=== PATIENT | male | born 1945 | race African-American/Black ===

== ENCOUNTER 2016-12-03 18:07 | Inpatient (IN) | payer MEDICAID, MEDICARE, OTHER ==
[~2016-12-03] VITALS: Ht 177.8 cm; Wt 95.3 kg
[~2016-12-03 18:07] MED LIST: AMBIEN10 M1 ORAL; CATAPRES0.1 MG PO; HYTRIN2 MG PO; KLONOPIN1 MG PO; METOPROLOL TART25 MG PO; MORPHINE SULFAT15 M1 PO; OXYCODONE-ACET1 EAC5 PO; QUETIAPINE FUMA25 MG PO
[2016-12-03 18:25] VITALS: BP 105/75
[2016-12-03 18:44] LABS: MEAN CORPUSCULAR HEMOGLOBIN 22.6 PG (27.0-31.0); MEAN CORPUSCULAR HGB CONC 31.1 G/DL (32.0-36.0); MEAN CORPUSCULAR VOLUME 72 FL (80-99); MEAN PLATELET VOLUME 11.8 FL (6.5-10.1); PLATELET COUNT 193 K/UL (150-450); RED BLOOD COUNT 6.06 M/UL (4.70-6.10); RED CELL DISTRIBUTION WIDTH 12.5 % (11.6-14.8); WHITE BLOOD COUNT 16.2 K/UL (4.8-10.8)
[2016-12-03 18:46] LABS: BASOPHILS % (AUTO) 0.8 % (0.0-2.0); EOSINOPHILS % (AUTO) 0.4 % (0.0-3.0); LYMPHOCYTES % (AUTO) 7.1 % (20.0-45.0); MONOCYTES % (AUTO) 4.5 % (1.0-10.0); NEUTROPHILS % (AUTO) 87.3 % (45.0-75.0)
[2016-12-03 18:54] LABS: REFLEX LACTIC ACID YES OR NO YES; TROPONIN I < 0.30 ng/mL (<=0.30)
[2016-12-03 19:52] LABS: ALANINE AMINOTRANSFERASE 44 U/L (3-41); ALBUMIN/GLOBULIN RATIO 0.8 (1.0-2.7); ANION GAP 16 (5-15); ASPARTATE AMINO TRANSFERASE 35 U/L (5-40); CALCIUM 8.6 mg/dL (8.6-10.2); CARBON DIOXIDE 25 mEQ/L (20-30); CHLORIDE 90 mEQ/L (98-107); CREATININE 0.9 mg/dL (0.7-1.2); HEMOLYSIS 74; POTASSIUM 5.5 mEQ/L (3.4-4.9); SODIUM 131 mEQ/L (135-145); TOTAL PROTEIN 7.7 g/dL (6.6-8.7)
[2016-12-03 20:00] VITALS: BP 127/64
[2016-12-03] MEDS: Heparin 5000 units/ml inj SUBQ SCH ×2 (20:00→21:00)
[2016-12-03 20:03] LABS: CKMB < 1.5 ng/mL (< 6.7)
[2016-12-03 20:10] LABS: APPEARANCE,URINE CLEAR; KETONES,URINE NEGATIVE (NEGATIVE); LEUKOCYTE ESTERASE ,URINE NEGATIVE (NEGATIVE); NITRITE,URINE NEGATIVE (NEGATIVE); PH,URINE 5 (4.5-8.0); PROTEIN,URINE 3+ (NEGATIVE); UROBILINOGEN,URINE NORMAL MG/DL (0.0-1.0)
[2016-12-03] MEDS ORDERED: Azithromycin Inj IV ONE (20:24)
[2016-12-03] MEDS ORDERED: Albuterol ud Inhalation HHN ONE (20:30)
[2016-12-03] MEDS ORDERED: Morphine Sulfate 4mg/ml Inj IVP ONE (20:30)
[2016-12-03] MEDS ORDERED: Ipratropium 0.02% Inh Soln 2.5ml UD HHN ONE (20:30)
[2016-12-03] MEDS ORDERED: Azithromycin 500 MG in NS 275 ML IV ONE (20:30)
[2016-12-03] MEDS ORDERED: cefTRIAXone 1 GM in NS 55 ML IV ONE (20:30)
[2016-12-03 20:43] LABS: RBC,URINE 0-2 /HPF (0 - 0); WBC,URINE 0-2 /HPF (0 - 0)
[2016-12-03] MEDS ORDERED: MS CONTIN30 MG ORAL (20:43)
[2016-12-03 20:44] LABS: BACTERIA,URINE OCCASIONAL /HPF
[2016-12-03] MEDS ORDERED: Metoprolol 25mg tab ORAL SCH (20:45)
[2016-12-03] MEDS ORDERED: HYDROmorphone 1mg/ml Carpuject IVP PRN (20:45)
[2016-12-03] MEDS ORDERED: INCRUSE ELLI62.5 MCG IH (20:47)
[2016-12-03] MEDS ORDERED: JANUVIA100 MG ORAL (20:47)
[2016-12-03] MEDS ORDERED: SPIRIVA18 MCG INH (20:47)
[2016-12-03] MEDS ORDERED: ADVAIR 250-501 EACH INH (20:47)
[2016-12-03] MEDS ORDERED: ASPERCREME177.4 ML TP (20:50)
[2016-12-03] MEDS ORDERED: BENADRYL25 MG ORAL (20:50)
[2016-12-03] MEDS ORDERED: QUETIAPINE FUMA50 MG ORAL (20:59)
[2016-12-03] MEDS ORDERED: Heparin 5000 units/ml inj SUBQ SCH (21:00)
--- NOTE | 2016-12-03 21:51 | Emergency Room Report ---
History of Present Illness General Chief Complaint: Dyspnea/Respdistress Source: Patient Present Illness HPI 71-year-old male presents to ED complaining of shortness of breath x1 day. States he smoked a cigarette earlier today. [place] very short of breath. Has history of COPD and is on home oxygen. 2 L normally. Per EMS patient was hypoxic and increased his oxygen to 4 L. Denies any chest pain. Febrile as per triage. Denies cough. No other aggravating relieving factors. Denies any other associated symptoms Allergies: Coded Allergies: VANCOMYCIN (Verified Adverse Reaction, Mild, RED MAN, 01/23/12) Patient History Past Medical History: DM, HTN, asthma, COPD Past Surgical History: none Pertinent Family History: none Social History: Reports: smoking, Denies: alcohol use, drug use Immunizations: UTD Reviewed Nursing Documentation: PMH: Agreed, PSxH: Agreed Nursing Documentation-PMH Past Medical History: No History, Except For Hx Cardiac Problems: Yes Hx Hypertension: Yes Hx Pacemaker: No Hx Asthma: Yes Hx COPD: Yes Hx Diabetes: Yes Hx Cancer: Yes Hx Gastrointestinal Problems: No Hx Neurological Problems: No Hx Cerebrovascular Accident: No Hx Transient Ischemic Attacks: No Hx Dementia: No Hx Alzheimer's Disease: No Hx Parkinson's Disease: No Hx Meningitis: No Hx Encephalitis: No Hx Seizures: No Hx Epilepsy: No Hx Multiple Sclerosis: No Hx Cerebral Palsy: No Hx Amyotrophic Lat Sclerosis: No Hx Guillian-Purvis Syndrome: No Hx Paralysis: No Hx Peripheral Neuropathy: No Hx Spinal Cord Injury: No Hx Head Trauma: No Hx Traumatic Brain Injury: No Hx Memory Loss: No Hx Concentration Difficulty: No Hx Speech Problem: Yes - trach Hx Tremors: No Hx Vertigo: No Hx Dizziness: No Hx Syncope: No Hx Headaches: No Hx Aphasia: No Hx Dysphasia: Yes Hx Numbness: No Hx Weakness: No Hx Fatigue: No Hx Neurologic Surgery: No Hx Brain Shunt: No Review of Systems All Other Systems: negative except mentioned in HPI Physical Exam Vital Signs Date Time Temp Pulse Resp B/P Pulse Ox O2 Delivery O2 Flow Rate FiO2 12/03/16 17:58 99.7 130 20 154/76 92 Nasal Cannula 4.0 Sp02 EP Interpretation: reviewed, abnormal General Appearance: mild distress, thin Head: normocephalic Eyes: bilateral eye PERRL, bilateral eye normal inspection ENT: hearing grossly normal, normal pharynx, no angioedema, normal voice Neck: full range of motion, supple/symm/no masses Respiratory: decreased breath sounds, crackles, wheezing Cardiovascular #1: tachycardia Gastrointestinal: normal bowel sounds, non tender, soft, non-distended, no guarding, no rebound Rectal: deferred Genitourinary: no CVA tenderness Musculoskeletal: back normal Neurologic: alert, oriented x3, responsive, motor strength/tone normal, sensory intact, speech normal Psychiatric: normal inspection Skin: normal inspection Lymphatic: normal inspection Medical Decision Making Diagnostic Impression: Primary Impression: COPD exacerbation Additional Impressions: Pneumonia Qualified Codes: J18.1 - Lobar pneumonia, unspecified organism Sepsis Qualified Codes: A41.9 - Sepsis, unspecified organism ER Course Hospital Course 71-year-old M presenting to ED with SOB after smoking cigarette. h/o COPD Differential diagnoses include: Pneumonia, CHF exacerbation, pneumothorax, fluid overload Clinical course Patient placed on stretcher. 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 After initial history and physical, I ordered nebulizer treatments. I ordered labs, IV fluids, EKG, chest x-ray, blood cultures, UA. patient febrile - given tylenol Labs - noted leukocytosis noted, hemoglobin/hematocrit stable, K 5.5, Cr ok, lactate 2.6, troponins negative CXR - bilateral congestion, ? infiltrates vs atelectasis EKG-sinus tachycardia Patient had difficult IV access. Placed an external jugular line. Given 30 mL per KG fluid bolus abx given Case discussed with Dr. Chen and he agreed to the patient to his service for further care and support I feel this is a highly complex case requiring extensive working including EKG/ Rhythm strip, Xray/CT/US, Blood/urine lab work, repeat exams while in ED, and administration of strong opiates/narcotics for pain control, admission to hospital or close patient follow up. Diagnosis - COPD exacerbation, pneumonia, sepsis Patient admitted to telemetry in serious condition Labs Test 12/03/16 18:22 12/03/16 19:10 12/03/16 19:55 White Blood Count 16.2 K/UL (4.8-10.8) Red Blood Count 6.06 M/UL (4.70-6.10) Hemoglobin 13.7 G/DL (14.2-18.0) Hematocrit 43.9 % (42.0-52.0) Mean Corpuscular Volume 72 FL (80-99) Mean Corpuscular Hemoglobin 22.6 PG (27.0-31.0) Mean Corpuscular Hemoglobin Concent 31.1 G/DL (32.0-36.0) Red Cell Distribution Width 12.5 % (11.6-14.8) Platelet Count 193 K/UL (150-450) Mean Platelet Volume 11.8 FL (6.5-10.1) Neutrophils (%) (Auto) 87.3 % (45.0-75.0) Lymphocytes (%) (Auto) 7.1 % (20.0-45.0) Monocytes (%) (Auto) 4.5 % (1.0-10.0) Eosinophils (%) (Auto) 0.4 % (0.0-3.0) Basophils (%) (Auto) 0.8 % (0.0-2.0) Lactic Acid Level 2.60 mmol/L (0.66-2.22) 2.60 mmol/L (0.66-2.22) Troponin I < 0.30 ng/mL (<=0.30) Sodium Level 131 mEQ/L (135-145) Potassium Level 5.5 mEQ/L (3.4-4.9) Chloride Level 90 mEQ/L (98-107) Carbon Dioxide Level 25 mEQ/L (20-30) Anion Gap 16 (5-15) Blood Urea Nitrogen 16 mg/dL (7-23) Creatinine 0.9 mg/dL (0.7-1.2) Estimat Glomerular Filtration Rate mL/min (>60) Glucose Level 261 mg/dL (74-106) Calcium Level 8.6 mg/dL (8.6-10.2) Total Bilirubin 0.4 mg/dL (0.0-1.2) Aspartate Amino Transf (AST/SGOT) 35 U/L (5-40) Alanine Aminotransferase (ALT/SGPT) 44 U/L (3-41) Alkaline Phosphatase 81 U/L (40-129) Total Creatine Kinase 41 U/L (38-174) Creatine Kinase MB < 1.5 ng/mL (< 6.7) Creatine Kinase MB Relative Index 3.6 Pro-B-Type Natriuretic Peptide 63 pg/mL (0-125) Total Protein 7.7 g/dL (6.6-8.7) Albumin 3.6 g/dL (3.5-5.2) Globulin 4.1 g/dL Albumin/Globulin Ratio 0.8 (1.0-2.7) Urine Color Pale yellow Urine Appearance Clear Urine pH 5 (4.5-8.0) Urine Specific [place] 1.015 (1.005-1.035) Urine Protein 3+ (NEGATIVE) Urine Glucose (UA) 1+ (NEGATIVE) Urine Ketones Negative (NEGATIVE) Urine Occult Blood 1+ (NEGATIVE) Urine Nitrite Negative (NEGATIVE) Urine Bilirubin Negative (NEGATIVE) Urine Urobilinogen Normal MG/DL (0.0-1.0) Urine Leukocyte Esterase Negative (NEGATIVE) Urine RBC 0-2 /HPF (0 - 0) Urine WBC 0-2 /HPF (0 - 0) Urine Squamous Epithelial Cells None /LPF (NONE/OCC) Urine Bacteria Occasional /HPF (NONE) EKG Diagnostic Results Rate: tachycardiac Rhythm: NSR ST Segments: no acute changes ASA given to the pt in ED: No Rhythm Strip Diag. Results EP Interpretation: yes Rhythm: NSR, no PVC's, no ectopy Chest X-Ray Diagnostic Results EP Interpretation: Yes Findings: no pneumothorax, no acute cardiopulmonary disease, other - bilateral atelectasis. effusion noted. ? infiltrate Number of Views: 1 Last Vital Signs Date Time Temp Pulse Resp B/P Pulse Ox O2 Delivery O2 Flow Rate FiO2 12/03/16 20:36 116 18 92 Nasal Cannula 4.0 12/03/16 20:00 102.3 127/64 Status: improved Disposition: ADMITTED INPATIENT Condition: Serious Referrals: BRYON CHEN (PCP) THOMAS BRADY M.D. December 03, 2016 21:51
[2016-12-03] MEDS ORDERED: Solu-MEDROL 125mg Inj IVP SCH (22:00)
[2016-12-03] MEDS ORDERED: Piperacillin/Tazobactam 3.375 GM in D5W 110 ML IVPB SCH (22:00)
[2016-12-03 22:02] VITALS: BP 127/67
[2016-12-03] MEDS ORDERED: Sodium Polystyrene Sulfonate 15gm Powder ORAL ONE (22:30)
[2016-12-03 23:00] VITALS: BP 123/68
[2016-12-03 23:20] VITALS: BP 150/75
[2016-12-03] MEDS: DuoNeb 0.5-3(2.5)mg/3ml neb HHN SCH (23:40)
[2016-12-04] MEDS: Heparin 5000 units/ml inj SUBQ SCH ×3 (00:10→20:21)
[2016-12-04] MEDS: Solu-MEDROL 125mg Inj IVP SCH ×4 (00:13→22:09)
[2016-12-04] MEDS: Metoprolol 25mg tab ORAL SCH ×3 (00:15→17:43)
[2016-12-04] MEDS: Pantoprazole Inj IVP SCH ×4 (00:16→22:09)
[2016-12-04] MEDS: Terazosin 2mg cap ORAL SCH ×2 (00:36→20:13)
[2016-12-04] MEDS: DuoNeb 0.5-3(2.5)mg/3ml neb HHN SCH ×6 (03:47→22:32)
[2016-12-04 04:00] VITALS: BP 126/75
[2016-12-04] MEDS ORDERED: HYDROmorphone 1mg/ml Carpuject SUBQ PRN (04:30)
[2016-12-04] MEDS: Piperacillin/Tazobactam 3.375 GM in D5W 110 ML IVPB SCH ×3 (05:16→22:09)
[2016-12-04 07:37] VITALS: BP 126/77
[2016-12-04] MEDS ORDERED: Heparin 2000 units/Ns 1000ml INJ ONE (08:00)
[2016-12-04] MEDS ORDERED: Sodium Bicarbonate 4% 2.4meq/5ml vial INJ ONE (08:00)
[2016-12-04] MEDS ORDERED: Lidocaine 1% Plain 30 ml INJ ONE (08:00)
[2016-12-04] MEDS: Morphine IR 15mg tab ORAL SCH ×2 (08:25→17:43)
[2016-12-04] MEDS: Levofloxacin 500mg tab ORAL SCH (08:25)
[2016-12-04] MEDS ORDERED: Dyna-Hex 2% Top Sol 8oz TOPIC ONE (09:00)
[2016-12-04] MEDS ORDERED: 1/2 NS 1000ml IV ONE (09:29)
[2016-12-04 10:45] LABS: MEAN CORPUSCULAR HEMOGLOBIN 22.6 PG (27.0-31.0); MEAN CORPUSCULAR HGB CONC 31.3 G/DL (32.0-36.0); MEAN CORPUSCULAR VOLUME 72 FL (80-99); MEAN PLATELET VOLUME 10.4 FL (6.5-10.1); PLATELET COUNT 170 K/UL (150-450); RED BLOOD COUNT 5.97 M/UL (4.70-6.10); RED CELL DISTRIBUTION WIDTH 12.1 % (11.6-14.8); WHITE BLOOD COUNT 12.7 K/UL (4.8-10.8)
[2016-12-04] MEDS: HYDROmorphone 1mg/ml Carpuject SUBQ PRN ×2 (10:54→16:03)
--- NOTE | 2016-12-04 11:01 | History and Physical Report ---
DATE OF ADMISSION: 12/03/2016 CHIEF COMPLAINT: Shortness of breath, COPD exacerbation, possible sepsis. HISTORY OF PRESENT ILLNESS: The patient is a 71-year-old male, well known to me. He has a history of COPD, hypertension and nicotine dependence. He has a prior history of gangrene of the fingers, status post amputation. He has a prior history of narcotics dependence, but is with a history of skin abscesses. The patient presented from home with complaints of one week of progressive shortness of breath. The patient has been using his nebulizers as well as supplemental oxygen, but on the day of admission his symptoms worsened and he eventually called 911. He was brought to the emergency room. There is noted to be short of breath and hypoxic. [place] [address]. He had an elevated lactic acid level. The patient has been started on broad-spectrum IV antibiotics. He is now admitted for further evaluation for possible sepsis, lactic acidosis, and COPD exacerbation. PAST MEDICAL HISTORY: As above. PAST SURGICAL HISTORY: As above. MEDICATIONS: Current medications reconciled and reviewed. ALLERGIES: Include vancomycin. SOCIAL HISTORY: There is no history of alcohol. The patient is a heavy smoker. Continues to smoke. There is a history of narcotic dependence, but the patient has been clean and sober for several years now. FAMILY HISTORY: Noncontributory. REVIEW OF SYSTEMS: General: No fever or chills. HEENT: No headaches or visual changes. Cardiopulmonary: Positive shortness of breath. No chest pain. Mild cough. Gastrointestinal: No nausea or vomiting. No diarrhea. Genitourinary: No urgency or frequency. Musculoskeletal: No joint pain or swelling. No evidence of seizures. PHYSICAL EXAMINATION: VITAL SIGNS: Temperature is 98.0 degrees, pulse 107, respirations 21, and blood pressure 126/77. GENERAL: The patient is a well-developed male, in apparent distress. He is dyspneic, but is able to speak mostly in full sentences. NECK: Supple. No jugular venous distention. HEART: Regular rate and rhythm. LUNGS: Diminished breath sounds with wheezes. ABDOMEN: Soft, nontender and nondistended. EXTREMITIES: Without clubbing or cyanosis. There is trace pitting edema. LABORATORY DATA: Sodium 131, potassium 5.5, chloride 90, bicarbonate 25, BUN of 16, creatinine 0.9, and glucose is 261. Lactic acid was 2.6. White count was 16,000, hemoglobin 13, and platelet count 193,000. UA was clear. Chest x-ray results are pending. ASSESSMENT: This is a pleasant male, who complaints of shortness of breath secondary to chronic obstructive pulmonary disease exacerbation. Pneumonia and sepsis. PROBLEM LIST: 1. Pneumonia and sepsis. 2. Chronic obstructive pulmonary disease exacerbation. 3. Respiratory insufficiency. 4. Tachycardia. 5. Hyponatremia. 6. Hyperkalemia. 7. Lactic acidosis. PLAN: Broad-spectrum IV antibiotic therapy. Intravenous steroids. Respiratory treatments [id number]. Pulmonary, ID, and Cardiology consultations were obtained. We will hydrate gently and follow up lactic acid level. Check a venous duplex of the lower extremities. Pain management. Patrick Mancilla M.D. DR: Opal JOB#: [id number] CC:
[2016-12-04 11:05] LABS: ALANINE AMINOTRANSFERASE 44 U/L (3-41); ALBUMIN/GLOBULIN RATIO 0.8 (1.0-2.7); ANION GAP 16 (5-15); ASPARTATE AMINO TRANSFERASE 32 U/L (5-40); CALCIUM 9.1 mg/dL (8.6-10.2); CARBON DIOXIDE 26 mEQ/L (20-30); CHLORIDE 92 mEQ/L (98-107); CREATININE 0.8 mg/dL (0.7-1.2); HEMOLYSIS 3; POTASSIUM 4.3 mEQ/L (3.4-4.9); SODIUM 134 mEQ/L (135-145)
--- NOTE | 2016-12-04 11:17 | Diagnostic Imaging Report ---
Indication: SOB Technique: One view of the chest Comparison: 08/27/2013 Findings: There is some atelectasis and possibly some consolidation at the left lateral lung base. There is minimal atelectasis at the right lung base. The heart size is normal. Pleural spaces are clear Impression: Left basilar atelectasis and possible consolidation. Correlate with clinical findings
[2016-12-04 11:55] LABS: BAND NEUTROPHILS % (MANUAL) 0 % (0-8); BASOPHILS % (MANUAL) 0 % (0-2); EOSINOPHILS % (MANUAL) 0 % (0-3); LYMPHOCYTES % (MANUAL) 9 % (20-45); MICROCYTES 1+; NEUTROPHILS % (MANUAL) 84 % (45-75); PLATELET ESTIMATE ADEQUATE; PLATELET MORPHOLOGY NORMAL; TOTAL CELLS COUNTED 100
[2016-12-04 12:03] VITALS: BP 131/79
--- NOTE | 2016-12-04 13:02 | Consultation ---
DATE OF CONSULTATION: 12/04/2016 PULMONARY CONSULTATION CONSULTING PHYSICIAN: Cristopher Gaines M.D. REASON FOR CONSULTATION: Respiratory insufficiency and congestion. HISTORY OF PRESENT ILLNESS: This is a 71-year-old male, admitted through the emergency room with increasing shortness of breath over the past full day. The patient does have a longstanding history of COPD, he is on oxygen at home. The patient does smoke and has been continuing to smoke. The patient noted to be febrile in the emergency room with cough and congestion. The patient is admitted after being evaluated in the emergency room and been treated. The patient's x-ray is notable for labile pneumonia. The patient's care discussed and reviewed with Dr. Mancilla and he had asked me kindly to evaluate and recommend further. PAST MEDICAL HISTORY: Diabetes, hypertension, asthma, COPD, and chronic hypoxemia. MEDICATIONS: Reviewed. ALLERGIES: Reviewed. SOCIAL HISTORY: The patient continues to smoke. He is retired at present. No IV drug use. The patient is otherwise independent. REVIEW OF SYSTEMS: Otherwise negative with the exception of the above. No other significant medical problems noted or reported. PhysicalExamination: General: A well-developed male with some congestion, but in no significant distress. Vital Signs: Heart rate 92, respiratory rate 18, saturations are 98% on three liters, and blood pressure is 126/77. HEENT: Overall negative. Extraocular movements are grossly intact. Pupils are equal and reactive. Oropharynx is moist without thrush. Neck: Otherwise supple. Lungs: With scattered rhonchi. Some reduced breath sounds in both base. Cardiovascular: Normal S1 and S2. Regular rate and rhythm without murmurs, rubs, or gallops. Abdomen: Soft, nontender, and nondistended. Extremities: No cyanosis or clubbing. No edema. Neurological: Grossly nonfocal. Alert and oriented x3. Cranial nerves otherwise are intact. Motor examination is otherwise negative. LABORATORY AND DIAGNOSTIC DATA: White cell count 16.2, hematocrit 43, and platelets are 193,000. Chemistry, sodium 131, potassium 5.5, BUN 16, and creatinine 0.9. Liver enzymes are normal. Lactic acid 2.6. IMPRESSION: 1. Labile pneumonia. 2. Shortness of breath. 3. Respiratory insufficiency. 4. Chronic hypoxemia. 5. Chronic nicotine dependence. 6. Hyperkalemia. 7. Sinus tachycardia, now improved. 8. Leukocytosis concern for sepsis with elevated lactic acid. 9. Vancomycin allergy. RECOMMENDATIONS: 1. Resume home medications. 2. Antibiotic coverage as outlined. 3. Agree with management as outlined. 4. IV antibiotics as outlined. 5. Necessary care as outlined. 6. DVT prophylaxis. 7. We will follow up clinically for chronic changes. 8. Follow up x-ray and consider IV steroids if the patient did not improve Cristopher Gaines M.D. DR: Talita JOB#: [id number] CC: MILLI
[2016-12-04 16:00] VITALS: BP 130/72
--- NOTE | 2016-12-04 16:36 | Diagnostic Imaging Report ---
Indications: Needs long-term IV access Technique: Ultrasound confirms patent compressible right basilic vein. Total sterile technique, including sterile probe cover and sterile gel, hat, mask,, sterile gown, large sterile drape, and preparation with 2% chlorhexidine utilized. Local anesthesia with 1% lidocaine. Under real-time ultrasound guidance, puncture basilic vein using 21-gauge needle, documented and archived, passage 0.018 guidewire under direct fluoroscopy, which was used to determine appropriate catheter length, exchange for 5 Salvadorean peel-away sheath. 5 [place] Bard dual-lumen power PICC cut to 41 cm. It was inserted through the peel-away sheath. Peel-away sheath and guidewire removed. Catheter fixed to the skin. Both catheter ports aspirated and flushed. Patient tolerated procedure well, without immediate complication. Digital radiograph documents satisfactory catheter tip position, at the cavoatrial junction. Total fluoroscopy time 0.2 minutes. Total dose area product 15 dGycm2 Impression: Successful placement of right arm PICC under sonographic and fluoroscopic guidance, as described above.
--- NOTE | 2016-12-04 18:16 | Consultation ---
DATE OF CONSULTATION: 12/04/2016 INFECTIOUS DISEASE CONSULTATION This consultation is for coverage of Dr. Webb. CONSULTING PHYSICIAN: Alonzo Duran M.D. PRIMARY ATTENDING: Patrick Mancilla M.D. REASON FOR CONSULTATION: Pneumonia and COPD exacerbation. HISTORY OF PRESENT ILLNESS: This 71-year-old man admitted yesterday from home because of shortness of breath. Shortness of breath is progressive for one week. The patient had subjective fever and cough at home. Temperature at hospital was 102.3. The patient had leukocytosis. PAST MEDICAL HISTORY: Significant for COPD. The patient is on oxygen at home. He has diabetes mellitus and hypertension. ALLERGIES: Allergic to vancomycin. MEDICATIONS: Clonazepam, clonidine, morphine, Levaquin, hydromorphone, Percocet, Zosyn, linezolid, heparin, methylprednisone, metoprolol, DuoNeb inhaler, Protonix, terazosin, and sodium chloride. SOCIAL HISTORY: He smokes one pack of cigarettes a day. . Denies alcohol or drug abuse. REVIEW OF SYSTEMS: As in history of present illness. PHYSICAL EXAMINATION: VITAL SIGNS: Temperature current is 97, pulse 107, and blood pressure 126/77. HEAD AND NECK: No oral lesion. Getting oxygen by nasal cannula. HEART: S1 and S2. Tachycardic. LUNGS: Decreased expansion and sounds. ABDOMEN: Obese and soft. EXTREMITIES: No edema. LABORATORY DATA: WBC 12.7, hemoglobin 13.5, hematocrit 43.1, and platelets 170,000. Sodium 134, potassium 4.3, chloride 92, bicarbonate 26, BUN 13, creatinine 0.8, and glucose 338. Cultures are pending. Chest x-ray showed consolidation or atelectasis in the left base. UA was negative for nitrite and leukocyte esterase and WBC was 0 to 2. IMPRESSION: 1. Sepsis with fever and tachycardia. Likely, the patient has pneumonia in the left lower lobe. 2. He has chronic obstructive pulmonary disease exacerbation. 3. Nicotine dependence. 4. Diabetes mellitus. 5. Lactic acidosis. 6. Tachycardia. RECOMMENDATION: We will obtain sputum culture. We will continue with current antibiotics Zosyn, Levaquin, and Linezolid. We will follow up the cultures and narrow antibiotics. At the end of my exam, I thank Dr. Mancilla for involving me in the care of this patient. Alonzo Duran M.D. DR: LUI JOB#: [id number] CC:
[2016-12-04 20:00] VITALS: BP 136/78
[2016-12-04] MEDS: HYDROmorphone 1mg/ml Carpuject IVP PRN (20:12)
[2016-12-05] VITALS: BP 138/80
[2016-12-05] MEDS: HYDROmorphone 1mg/ml Carpuject IVP PRN ×2 (00:18→04:19)
[2016-12-05] MEDS: DuoNeb 0.5-3(2.5)mg/3ml neb HHN SCH ×6 (03:02→23:30)
[2016-12-05 04:00] VITALS: BP 106/55
[2016-12-05] MEDS: Piperacillin/Tazobactam 3.375 GM in D5W 110 ML IVPB SCH ×3 (05:53→21:14)
[2016-12-05] MEDS: Pantoprazole Inj IVP SCH ×3 (05:53→21:12)
[2016-12-05] MEDS: Solu-MEDROL 125mg Inj IVP SCH (05:53)
[2016-12-05 07:11] LABS: ALANINE AMINOTRANSFERASE 45 U/L (3-41); ALBUMIN/GLOBULIN RATIO 0.8 (1.0-2.7); ANION GAP 13 (5-15); ASPARTATE AMINO TRANSFERASE 34 U/L (5-40); CALCIUM 8.8 mg/dL (8.6-10.2); CARBON DIOXIDE 27 mEQ/L (20-30); CHLORIDE 94 mEQ/L (98-107); CREATININE 0.8 mg/dL (0.7-1.2); HEMOLYSIS 0; POTASSIUM 3.6 mEQ/L (3.4-4.9); SODIUM 134 mEQ/L (135-145); TOTAL PROTEIN 7.5 g/dL (6.6-8.7)
--- NOTE | 2016-12-05 07:46 | General Progress Note ---
Assessment/Plan Problem List: (1) Insomnia (2) CHF (congestive heart failure) (3) Pneumonia ICD Codes: J18.9 - Pneumonia, unspecified organism SNOMED: 631115364, [id number] Qualifiers: Qualified Codes: J18.1 - Lobar pneumonia, unspecified organism (4) COPD exacerbation ICD Codes: J44.1 - Chronic obstructive pulmonary disease with (acute) exacerbation SNOMED: 976461552, [id number] (5) Sepsis ICD Codes: A41.9 - Sepsis, unspecified organism SNOMED: 13197790 Qualifiers: Qualified Codes: A41.9 - Sepsis, unspecified organism Status: stable Assessment/Plan iv abx follow up cultures resp rx decrease steroids monitor cxr pain rx Subjective ROS Limited/Unobtainable: No Constitutional: Reports: malaise, weakness HEENT: Reports: no symptoms Cardiovascular: Reports: chest pain Respiratory: Reports: cough, shortness of breath, sputum Gastrointestinal/Abdominal: Reports: no symptoms Genitourinary: Reports: no symptoms Neurologic/Psychiatric: Reports: no symptoms Endocrine: Reports: no symptoms Hematologic/Lymphatic: Reports: anemia Allergies: Coded Allergies: VANCOMYCIN (Verified Adverse Reaction, Mild, RED MAN, 01/23/12) All Systems: reviewed and negative except above Subjective still sob. c/o generalized pain- uncontrolled. no fever or chills. ID, pulm , cards appreciated. Objective Last 24 Hour Vital Signs Date Time Temp Pulse Resp B/P Pulse Ox O2 Delivery O2 Flow Rate FiO2 12/05/16 04:00 106 12/05/16 04:00 98.0 104 22 106/55 99 Nasal Cannula 3.0 12/05/16 03:04 96 18 95 Nasal Cannula 3.0 32 12/05/16 03:04 95 18 99 Nasal Cannula 3.0 32 12/05/16 00:00 98.1 101 20 138/80 96 Room Air 12/05/16 00:00 97 12/04/16 22:34 94 18 99 Nasal Cannula 3.0 32 12/04/16 22:34 96 18 98 Nasal Cannula 3.0 32 12/04/16 20:00 95 12/04/16 20:00 97.8 101 20 136/78 96 Nasal Cannula 3.0 12/04/16 18:42 94 18 98 Nasal Cannula 3.0 32 12/04/16 18:42 95 18 97 Nasal Cannula 3.0 32 12/04/16 18:42 96.9 12/04/16 18:41 Nasal Cannula 3.0 32 12/04/16 18:41 97 Nasal Cannula 3.0 32 12/04/16 17:43 98 130/72 12/04/16 16:33 96.9 12/04/16 16:00 77 12/04/16 16:00 96.6 98 18 130/72 98 Room Air 12/04/16 12:03 96.9 102 17 131/79 98 Room Air 12/04/16 12:00 75 12/04/16 11:53 84 14 98 Nasal Cannula 3.0 32 12/04/16 11:45 86 16 97 Nasal Cannula 3.0 32 12/04/16 08:25 107 126/77 12/04/16 08:25 126/77 12/04/16 08:21 126/77 12/04/16 08:00 104 12/04/16 07:45 92 18 98 Nasal Cannula 3.0 32 Intake and Output 12/04/16 12/05/16 19:00 07:00 Intake Total 1375 ml 548.75 ml Output Total 1140 ml 1400 ml Balance 235 ml -851.25 ml Intake Oral 1300 ml IV Total 75 ml 548.75 ml Output Urine Total 1140 ml 1400 ml # Voids 4 # Bowel Movements 1 Laboratory Tests 12/04/16 09:50: White Blood Count 12.7H, Red Blood Count 5.97, Hemoglobin 13.5L, Hematocrit 43.1 , Mean Corpuscular Volume 72L, Mean Corpuscular Hemoglobin 22.6L, Mean Corpuscular Hemoglobin Concent 31.3L, Red Cell Distribution Width 12.1, Platelet Count 170, Mean Platelet Volume 10.4H, Neutrophils (%) (Auto) , Lymphocytes (%) (Auto) , Monocytes (%) (Auto) , Eosinophils (%) (Auto) , Basophils (%) (Auto) , Differential Total Cells Counted 100, Neutrophils % ( Manual) 84H, Lymphocytes % (Manual) 9L, Monocytes % (Manual) 7, Eosinophils % ( Manual) 0, Basophils % (Manual) 0, Band Neutrophils 0, Platelet Estimate Adequate, Platelet Morphology Normal, Microcytosis 1+, Sodium Level 134L, Potassium Level 4.3, Chloride Level 92L, Carbon Dioxide Level 26, Anion Gap 16H , Blood Urea Nitrogen 13, Creatinine 0.8, Estimat Glomerular Filtration Rate , Glucose Level 336H, Calcium Level 9.1, Total Bilirubin 0.5, Aspartate Amino Transf (AST/SGOT) 32, Alanine Aminotransferase (ALT/SGPT) 44H, Alkaline Phosphatase 82, Total Protein 8.0, Albumin 3.6, Globulin 4.4, Albumin/Globulin Ratio 0.8L 12/05/16 05:42: Sodium Level 134L, Potassium Level 3.6, Chloride Level 94L, Carbon Dioxide Level 27, Anion Gap 13, Blood Urea Nitrogen 16, Creatinine 0.8, Estimat Glomerular Filtration Rate , Glucose Level 372H, Calcium Level 8.8, Total Bilirubin 0.4, Aspartate Amino Transf (AST/SGOT) 34, Alanine Aminotransferase ( ALT/SGPT) 45H, Alkaline Phosphatase 72, Total Protein 7.5, Albumin 3.4L, Globulin 4.1, Albumin/Globulin Ratio 0.8L 12/05/16 06:39: Lactic Acid Level [Pending] Height (Feet): 5 Height (Inches): 10.00 Weight (Pounds): 210 General Appearance: WD/WN, alert Neck: supple Cardiovascular: normal peripheral pulses, normal rate, regular rhythm Respiratory/Chest: rhonchi - bilaterally, expiratory wheezing Abdomen: normal bowel sounds, non tender, soft, no organomegaly, no mass Extremities: normal range of motion, non-tender Edema: mild edema 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
[2016-12-05 08:00] VITALS: BP 141/78
--- NOTE | 2016-12-05 08:14 | Pulmonology Progress Note ---
Assessment/Plan Assessment/Plan IMPRESSION: 1. Basilar pneumonia. 2. Shortness of breath. 3. Respiratory insufficiency. 4. Chronic hypoxemia. 5. Chronic nicotine dependence. 6. Hyperkalemia. 7. Sinus tachycardia, now improved. 8. Leukocytosis concern for sepsis with elevated lactic acid. 9. Vancomycin allergy. PLAN care noted IV antibiotics WBC responding follow up chest XR encourage cough and clearance of secretions follow up and manage impression, plan, and exam edited and reviewed in detail care discussed with RN Subjective Allergies: Coded Allergies: VANCOMYCIN (Verified Adverse Reaction, Mild, RED MAN, 01/23/12) Subjective somewhat confused Objective Last 24 Hour Vital Signs Date Time Temp Pulse Resp B/P Pulse Ox O2 Delivery O2 Flow Rate FiO2 12/05/16 08:00 98.2 101 20 141/78 96 Nasal Cannula 2.0 12/05/16 04:00 106 12/05/16 04:00 98.0 104 22 106/55 99 Nasal Cannula 3.0 12/05/16 03:04 96 18 95 Nasal Cannula 3.0 32 12/05/16 03:04 95 18 99 Nasal Cannula 3.0 32 12/05/16 00:00 98.1 101 20 138/80 96 Room Air 12/05/16 00:00 97 12/04/16 22:34 94 18 99 Nasal Cannula 3.0 32 12/04/16 22:34 96 18 98 Nasal Cannula 3.0 32 12/04/16 20:00 95 12/04/16 20:00 97.8 101 20 136/78 96 Nasal Cannula 3.0 12/04/16 18:42 94 18 98 Nasal Cannula 3.0 32 12/04/16 18:42 95 18 97 Nasal Cannula 3.0 32 12/04/16 18:42 96.9 12/04/16 18:41 Nasal Cannula 3.0 32 12/04/16 18:41 97 Nasal Cannula 3.0 32 12/04/16 17:43 98 130/72 12/04/16 16:33 96.9 12/04/16 16:00 77 12/04/16 16:00 96.6 98 18 130/72 98 Room Air 12/04/16 12:03 96.9 102 17 131/79 98 Room Air 12/04/16 12:00 75 12/04/16 11:53 84 14 98 Nasal Cannula 3.0 32 12/04/16 11:45 86 16 97 Nasal Cannula 3.0 32 12/04/16 08:25 107 126/77 12/04/16 08:25 126/77 12/04/16 08:21 126/77 Intake and Output 12/04/16 12/05/16 19:00 07:00 Intake Total 1375 ml 548.75 ml Output Total 1140 ml 1400 ml Balance 235 ml -851.25 ml Intake Oral 1300 ml IV Total 75 ml 548.75 ml Output Urine Total 1140 ml 1400 ml # Voids 4 # Bowel Movements 1 Objective A well-developed male with some congestion, but in no significant distress. HEENT: Overall negative. Extraocular movements are grossly intact. Pupils are equal and reactive. Oropharynx is moist. Neck: supple. Lungs: With some rhonchi. Some reduced breath sounds in both base. Cardiovascular: Normal S1 and S2. Regular rate and rhythm without murmurs, rubs, or gallops. Abdomen: Soft, nontender, and nondistended. Extremities: No cyanosis or clubbing. No edema. Neurological: Grossly nonfocal. Alert and oriented x3. Cranial nerves otherwise are intact. Motor examination is otherwise negative. Microbiology Date/Time Source Procedure Growth Status 12/03/16 19:10 Blood Blood Culture - Preliminary NO GROWTH AFTER 24 HOURS Resulted 12/03/16 18:22 Blood Blood Culture - Preliminary NO GROWTH AFTER 24 HOURS Resulted Laboratory Tests 12/04/16 09:50: White Blood Count 12.7H, Red Blood Count 5.97, Hemoglobin 13.5L, Hematocrit 43.1 , Mean Corpuscular Volume 72L, Mean Corpuscular Hemoglobin 22.6L, Mean Corpuscular Hemoglobin Concent 31.3L, Red Cell Distribution Width 12.1, Platelet Count 170, Mean Platelet Volume 10.4H, Neutrophils (%) (Auto) , Lymphocytes (%) (Auto) , Monocytes (%) (Auto) , Eosinophils (%) (Auto) , Basophils (%) (Auto) , Differential Total Cells Counted 100, Neutrophils % ( Manual) 84H, Lymphocytes % (Manual) 9L, Monocytes % (Manual) 7, Eosinophils % ( Manual) 0, Basophils % (Manual) 0, Band Neutrophils 0, Platelet Estimate Adequate, Platelet Morphology Normal, Microcytosis 1+, Sodium Level 134L, Potassium Level 4.3, Chloride Level 92L, Carbon Dioxide Level 26, Anion Gap 16H , Blood Urea Nitrogen 13, Creatinine 0.8, Estimat Glomerular Filtration Rate , Glucose Level 336H, Calcium Level 9.1, Total Bilirubin 0.5, Aspartate Amino Transf (AST/SGOT) 32, Alanine Aminotransferase (ALT/SGPT) 44H, Alkaline Phosphatase 82, Total Protein 8.0, Albumin 3.6, Globulin 4.4, Albumin/Globulin Ratio 0.8L 12/05/16 05:42: Sodium Level 134L, Potassium Level 3.6, Chloride Level 94L, Carbon Dioxide Level 27, Anion Gap 13, Blood Urea Nitrogen 16, Creatinine 0.8, Estimat Glomerular Filtration Rate , Glucose Level 372H, Calcium Level 8.8, Total Bilirubin 0.4, Aspartate Amino Transf (AST/SGOT) 34, Alanine Aminotransferase ( ALT/SGPT) 45H, Alkaline Phosphatase 72, Total Protein 7.5, Albumin 3.4L, Globulin 4.1, Albumin/Globulin Ratio 0.8L 12/05/16 06:39: Lactic Acid Level 1.20 Current Medications Medications (Trade) Dose Ordered Sig/Quita Route PRN Reason Start Time Stop Time Status Last Admin Dose Admin Albuterol/ Ipratropium 3 ml 3 ml Q4HRT HHN 12/03/16 23:00 12/08/16 22:59 12/05/16 03:02 Chlorhexidine Gluconate (Rose Mary-Hex 2%) 1 applic DAILY TOPIC 12/05/16 09:00 01/04/17 08:59 Clonazepam (KlonoPIN) 1 mg BID ORAL 12/04/16 09:00 12/11/16 08:59 12/04/16 17:42 Clonidine HCl (Catapres) 0.1 mg BID ORAL 12/04/16 09:00 01/03/17 08:59 12/04/16 08:25 Dextrose (Dextrose 50%) STAT PRN IV Hypoglycemia 12/05/16 07:45 01/04/17 07:44 UNV Heparin Sodium (Porcine) (Heparin 5000 units/ml) 5,000 units EVERY 12 HOURS SUBQ 12/04/16 00:00 01/03/17 00:00 12/04/16 20:21 Hydromorphone HCl (Dilaudid) 2 mg Q4H PRN IVP Severe Pain (Pain Scale 7-10) 12/05/16 08:00 12/12/16 07:59 UNV Insulin Aspart (NovoLOG) BEFORE MEALS AND HS SUBQ 12/05/16 11:30 01/04/17 11:29 UNV Levofloxacin (Levaquin) 500 mg DAILY ORAL 12/04/16 09:00 12/11/16 08:59 12/04/16 08:25 Linezolid (Zyvox) 600 mg EVERY 12 HOURS ORAL 12/04/16 00:00 12/09/16 00:00 12/04/16 20:13 Methylprednisolone Sodium Succinate (Solu-MEDROL) 60 mg Q12HR IVP 12/05/16 09:00 01/04/17 08:59 UNV Metoprolol Tartrate 25 mg 25 mg BID ORAL 12/04/16 00:00 01/03/17 00:00 12/04/16 17:43 Morphine HCl (Morphine IR) 15 mg BID ORAL 12/04/16 09:00 12/11/16 08:59 12/04/16 17:43 Oxycodone/ Acetaminophen (Percocet 10/325) 1 tab Q4H PRN ORAL Moderate Pain (Pain Scale 4-6) 12/04/16 08:15 12/11/16 08:14 Pantoprazole (Protonix) 40 mg Q8HR IVP 12/03/16 22:00 01/02/17 21:59 12/05/16 05:53 Piperacillin Sod/ Tazobactam Sod/ Dextrose (Zosyn/D5W) 110 ml @ 27.5 mls/hr EVERY 8 HOURS IVPB 12/04/16 06:00 12/11/16 05:59 12/05/16 05:53 Sodium Chloride (Sodium Chloride 1000ml bag) 1,000 ml @ 75 mls/hr [id number] IV 12/03/16 21:00 01/02/17 20:59 12/04/16 00:41 Terazosin HCl (Hytrin) 2 mg QHS ORAL 12/03/16 21:00 01/02/17 20:59 12/04/16 20:13 ZACK TORRES December 05, 2016 08:14
[2016-12-05] MEDS: Levofloxacin 500mg tab ORAL SCH (08:36)
[2016-12-05] MEDS: Metoprolol 25mg tab ORAL SCH ×2 (08:37→17:10)
[2016-12-05] MEDS: Morphine IR 15mg tab ORAL SCH ×2 (08:38→17:11)
[2016-12-05] MEDS: Heparin 5000 units/ml inj SUBQ SCH ×2 (08:41→21:18)
[2016-12-05] MEDS: Dyna-Hex 2% Top Sol 8oz TOPIC SCH (08:43)
--- NOTE | 2016-12-05 11:23 | Infectious Diseases Prog Note ---
Assessment/Plan Assessment/Plan antibiotics : linezolid, levoquin, zosyn A 1. pneumonia 2. COPD exacerbation 3. leucocytosis improving 4. DM P 1. continue linezolid, levoquin, zosyn 2. sputum culture 3. serum legionella Ab 4. will follow up cultures Subjective Constitutional: Denies: chills, fever Respiratory: Reports: productive cough - decreasing, shortness of breath Gastrointestinal/Abdominal: Denies: diarrhea, nausea, vomiting Musculoskeletal: Reports: pain Allergies: Coded Allergies: VANCOMYCIN (Verified Adverse Reaction, Mild, RED MAN, 01/23/12) Objective Vital Signs Last 24 Hour Vital Signs Date Time Temp Pulse Resp B/P Pulse Ox O2 Delivery O2 Flow Rate FiO2 12/05/16 10:54 92 18 99 Nasal Cannula 3.0 32 12/05/16 10:45 91 18 95 Nasal Cannula 3.0 32 12/05/16 08:37 101 141/78 12/05/16 08:37 141/78 12/05/16 08:00 98.2 101 20 141/78 96 Nasal Cannula 2.0 12/05/16 07:15 Nasal Cannula 3.0 32 12/05/16 07:15 95 Nasal Cannula 3.0 32 12/05/16 07:15 Nasal Cannula 3.0 32 12/05/16 07:15 Nasal Cannula 3.0 32 12/05/16 04:00 106 12/05/16 04:00 98.0 104 22 106/55 99 Nasal Cannula 3.0 12/05/16 03:04 96 18 95 Nasal Cannula 3.0 32 12/05/16 03:04 95 18 99 Nasal Cannula 3.0 32 12/05/16 00:00 98.1 101 20 138/80 96 Room Air 12/05/16 00:00 97 12/04/16 22:34 94 18 99 Nasal Cannula 3.0 32 12/04/16 22:34 96 18 98 Nasal Cannula 3.0 32 12/04/16 20:00 95 12/04/16 20:00 97.8 101 20 136/78 96 Nasal Cannula 3.0 12/04/16 18:42 94 18 98 Nasal Cannula 3.0 32 12/04/16 18:42 95 18 97 Nasal Cannula 3.0 32 12/04/16 18:42 96.9 12/04/16 18:41 Nasal Cannula 3.0 32 12/04/16 18:41 97 Nasal Cannula 3.0 32 12/04/16 17:43 98 130/72 12/04/16 16:33 96.9 12/04/16 16:00 77 12/04/16 16:00 96.6 98 18 130/72 98 Room Air 12/04/16 12:03 96.9 102 17 131/79 98 Room Air 12/04/16 12:00 75 12/04/16 11:53 84 14 98 Nasal Cannula 3.0 32 12/04/16 11:45 86 16 97 Nasal Cannula 3.0 32 Height (Feet): 5 Height (Inches): 10.00 Weight (Pounds): 210 Respiratory/Chest: lungs clear Cardiovascular: normal rate, regular rhythm, no gallop/murmur Abdomen: soft, non tender Extremities: no edema Microbiology Date/Time Source Procedure Growth Status 12/03/16 19:10 Blood Blood Culture - Preliminary NO GROWTH AFTER 24 HOURS Resulted 12/03/16 18:22 Blood Blood Culture - Preliminary NO GROWTH AFTER 24 HOURS Resulted Laboratory Tests Test 12/05/16 05:42 12/05/16 06:39 12/05/16 08:53 Sodium Level 134 mEQ/L (135-145) L Potassium Level 3.6 mEQ/L (3.4-4.9) Chloride Level 94 mEQ/L (98-107) L Carbon Dioxide Level 27 mEQ/L (20-30) Anion Gap 13 (5-15) Blood Urea Nitrogen 16 mg/dL (7-23) Creatinine 0.8 mg/dL (0.7-1.2) Estimat Glomerular Filtration Rate mL/min (>60) Glucose Level 372 mg/dL (74-106) H Calcium Level 8.8 mg/dL (8.6-10.2) Total Bilirubin 0.4 mg/dL (0.0-1.2) Aspartate Amino Transf (AST/SGOT) 34 U/L (5-40) Alanine Aminotransferase (ALT/SGPT) 45 U/L (3-41) H Alkaline Phosphatase 72 U/L (40-129) Total Protein 7.5 g/dL (6.6-8.7) Albumin 3.4 g/dL (3.5-5.2) L Globulin 4.1 g/dL Albumin/Globulin Ratio 0.8 (1.0-2.7) L Lactic Acid Level 1.20 mmol/L (0.66-2.22) Hemoglobin A1c 7.8 % (< 6.0) H NINO MORGAN December 05, 2016 11:23
[2016-12-05] MEDS: NovoLOG Insulin Flexpen SUBQ SCH ×3 (11:42→21:17)
[2016-12-05 11:47] VITALS: BP 127/79
--- NOTE | 2016-12-05 13:32 | Diagnostic Imaging Report ---
Indication: COUGH Technique: One view of the chest Comparison: 12/03/2016 Findings: Lungs and pleural spaces are clear. Heart size is normal. There is improved aeration at the left lung base, with decreased but persistent atelectasis and decreased consolidative change. There is chronic appearing deformity of the right clavicular head. Interim placement of a right arm PICC Impression: Improved left basilar atelectasis and consolidation, over 2 days Other findings as noted
[2016-12-05 15:49] VITALS: BP 138/83
--- NOTE | 2016-12-05 19:51 | Cardiology Report ---
APPROVED REPORT EKG Measurement Heart [id number] Sinus tachycardia Cannot rule out Anterior infarct, age undetermined Abnormal ECG
[2016-12-05 20:00] VITALS: BP 122/73
[2016-12-05] MEDS ORDERED: Solu-MEDROL 125mg Inj IVP SCH (21:00)
[2016-12-05] MEDS: Terazosin 2mg cap ORAL SCH (21:14)
[2016-12-06] VITALS: BP 141/92
[2016-12-06] MEDS: DuoNeb 0.5-3(2.5)mg/3ml neb HHN SCH ×6 (02:20→23:33)
[2016-12-06 04:00] VITALS: BP 136/80
[2016-12-06] MEDS: Piperacillin/Tazobactam 3.375 GM in D5W 110 ML IVPB SCH (05:16)
[2016-12-06] MEDS: Pantoprazole Inj IVP SCH (05:17)
[2016-12-06] MEDS: NovoLOG Insulin Flexpen SUBQ SCH ×5 (06:07→21:27)
--- NOTE | 2016-12-06 08:07 | General Progress Note ---
Assessment/Plan Problem List: (1) Insomnia (2) CHF (congestive heart failure) (3) Pneumonia ICD Codes: J18.9 - Pneumonia, unspecified organism SNOMED: 426206008, [id number] Qualifiers: Qualified Codes: J18.1 - Lobar pneumonia, unspecified organism (4) COPD exacerbation ICD Codes: J44.1 - Chronic obstructive pulmonary disease with (acute) exacerbation SNOMED: 444254673, [id number] (5) Sepsis ICD Codes: A41.9 - Sepsis, unspecified organism SNOMED: 93682128 Qualifiers: Qualified Codes: A41.9 - Sepsis, unspecified organism Status: stable, progressing Assessment/Plan iv abx follow up cultures resp rx po steroids increase diabetes rx resume anxiolytics monitor cxr pain rx to med surg Subjective ROS Limited/Unobtainable: No Constitutional: Reports: malaise, weakness HEENT: Reports: no symptoms Cardiovascular: Reports: no symptoms Respiratory: Reports: cough, shortness of breath Gastrointestinal/Abdominal: Reports: no symptoms Genitourinary: Reports: no symptoms Neurologic/Psychiatric: Reports: no symptoms Endocrine: Reports: no symptoms Hematologic/Lymphatic: Reports: no symptoms Allergies: Coded Allergies: VANCOMYCIN (Verified Adverse Reaction, Mild, RED MAN, 01/23/12) All Systems: reviewed and negative except above Subjective high blood sugars. not being covered every 4 hrs. cxr improved. still with significant pain Objective Last 24 Hour Vital Signs Date Time Temp Pulse Resp B/P Pulse Ox O2 Delivery O2 Flow Rate FiO2 12/06/16 07:07 94 20 98 Nasal Cannula 2.0 28 12/06/16 07:02 94 20 96 Nasal Cannula 2.0 28 12/06/16 07:02 Nasal Cannula 2.0 28 12/06/16 07:02 96 Nasal Cannula 2.0 28 12/06/16 05:46 97.0 12/06/16 04:00 92 12/06/16 04:00 97.0 96 18 136/80 98 Room Air 12/06/16 02:21 88 20 98 Nasal Cannula 2.0 28 12/06/16 02:20 84 20 94 Nasal Cannula 2.0 28 12/06/16 00:00 98 12/06/16 00:00 98.2 96 20 141/92 97 Nasal Cannula 2.0 28 12/05/16 23:30 80 20 93 Nasal Cannula 2.0 28 12/05/16 23:30 82 20 97 Nasal Cannula 2.0 28 12/05/16 20:00 85 12/05/16 20:00 98.2 73 20 122/73 96 Nasal Cannula 2.0 28 12/05/16 19:45 84 20 96 Nasal Cannula 2.0 28 12/05/16 19:30 94 Nasal Cannula 2.0 28 12/05/16 19:30 81 20 94 Nasal Cannula 2.0 28 12/05/16 19:30 Nasal Cannula 2.0 28 12/05/16 17:10 92 138/83 12/05/16 17:10 138/83 12/05/16 15:49 98.2 93 20 138/83 94 Room Air 12/05/16 15:47 86 12/05/16 15:02 91 18 95 Nasal Cannula 3.0 32 12/05/16 15:02 92 18 99 Nasal Cannula 3.0 32 12/05/16 11:58 96 12/05/16 11:47 98.0 95 20 127/79 97 Nasal Cannula 2.0 12/05/16 10:54 92 18 99 Nasal Cannula 3.0 32 12/05/16 10:45 91 18 95 Nasal Cannula 3.0 32 12/05/16 08:37 101 141/78 12/05/16 08:37 141/78 Intake and Output 12/05/16 12/06/16 19:00 07:00 Intake Total 1587.5 ml 525 ml Output Total 1075 ml 1600 ml Balance 512.5 ml -1075 ml Intake Oral 720 ml IV Total 867.5 ml 525 ml Output Urine Total 1075 ml 1600 ml Laboratory Tests 12/05/16 08:53: Hemoglobin A1c 7.8H 12/05/16 13:14: Legionella pneumophila Group 1 Ab [Pending], Legionella pneumophilia IgM Group 1 [Pending] Height (Feet): 5 Height (Inches): 10.00 Weight (Pounds): 210 General Appearance: WD/WN, alert Neck: supple Cardiovascular: normal rate, regular rhythm Respiratory/Chest: rhonchi - bilaterally, expiratory wheezing Abdomen: normal bowel sounds, non tender, soft, no organomegaly Edema: no edema noted Arm (L), no edema noted Arm (R), no edema noted Leg (L), no edema noted Leg (R), no edema noted Pedal (L), no edema noted Pedal (R), no edema noted Generalized Neurologic: no motor/sensory deficits, alert, oriented x 3 BRYON CHEN December 06, 2016 08:07
[2016-12-06 08:11] VITALS: BP 142/79
--- NOTE | 2016-12-06 08:21 | Pulmonology Progress Note ---
Assessment/Plan Assessment/Plan IMPRESSION: 1. Basilar pneumonia. 2. Shortness of breath. 3. Respiratory insufficiency. 4. Chronic hypoxemia. 5. Chronic nicotine dependence. 6. Hyperkalemia. 7. Sinus tachycardia, now improved. 8. Leukocytosis concern for sepsis with elevated lactic acid. 9. Vancomycin allergy. PLAN care noted IV antibiotics reviewed WBC responding follow up chest XR improved encourage cough and clearance of secretions follow up and manage consider dc planning soon and po antibiotics impression, plan, and exam edited and reviewed in detail care discussed with RN Subjective Allergies: Coded Allergies: VANCOMYCIN (Verified Adverse Reaction, Mild, RED MAN, 01/23/12) Subjective somewhat confused otherwise stable Objective Last 24 Hour Vital Signs Date Time Temp Pulse Resp B/P Pulse Ox O2 Delivery O2 Flow Rate FiO2 12/06/16 08:11 96.5 100 17 142/79 97 Room Air 12/06/16 07:07 94 20 98 Nasal Cannula 2.0 28 12/06/16 07:02 94 20 96 Nasal Cannula 2.0 28 12/06/16 07:02 Nasal Cannula 2.0 28 12/06/16 07:02 96 Nasal Cannula 2.0 28 12/06/16 05:46 97.0 12/06/16 04:00 92 12/06/16 04:00 97.0 96 18 136/80 98 Room Air 12/06/16 02:21 88 20 98 Nasal Cannula 2.0 28 12/06/16 02:20 84 20 94 Nasal Cannula 2.0 28 12/06/16 00:00 98 12/06/16 00:00 98.2 96 20 141/92 97 Nasal Cannula 2.0 28 12/05/16 23:30 80 20 93 Nasal Cannula 2.0 28 12/05/16 23:30 82 20 97 Nasal Cannula 2.0 28 12/05/16 20:00 85 12/05/16 20:00 98.2 73 20 122/73 96 Nasal Cannula 2.0 12/05/16 19:45 84 20 96 Nasal Cannula 2.0 12/05/16 19:30 94 Nasal Cannula 2.0 28 12/05/16 19:30 81 20 94 Nasal Cannula 2.0 28 12/05/16 19:30 Nasal Cannula 2.0 28 12/05/16 17:10 92 138/83 12/05/16 17:10 138/83 12/05/16 15:49 98.2 93 20 138/83 94 Room Air 12/05/16 15:47 86 12/05/16 15:02 91 18 95 Nasal Cannula 3.0 32 12/05/16 15:02 92 18 99 Nasal Cannula 3.0 32 12/05/16 11:58 96 12/05/16 11:47 98.0 95 20 127/79 97 Nasal Cannula 2.0 12/05/16 10:54 92 18 99 Nasal Cannula 3.0 32 12/05/16 10:45 91 18 95 Nasal Cannula 3.0 32 12/05/16 08:37 101 141/78 12/05/16 08:37 141/78 Intake and Output 12/05/16 12/06/16 19:00 07:00 Intake Total 1587.5 ml 525 ml Output Total 1075 ml 1600 ml Balance 512.5 ml -1075 ml Intake Oral 720 ml IV Total 867.5 ml 525 ml Output Urine Total 1075 ml 1600 ml Objective A well-developed male with some congestion, but in no significant distress. HEENT: Overall negative. Extraocular movements are grossly intact. Pupils are equal and reactive. Oropharynx is moist. Neck: supple. Lungs: With reduced rhonchi. reduced breath sounds but no wheeze. Cardiovascular: Normal S1 and S2. Regular rate and rhythm without murmurs, rubs, or gallops. Abdomen: Soft, nontender, and nondistended. Extremities: No cyanosis or clubbing. No edema. Neurological: Grossly nonfocal. Alert and oriented x3. Cranial nerves otherwise are intact. Motor examination is otherwise negative. Microbiology Date/Time Source Procedure Growth Status 12/03/16 19:10 Blood Blood Culture - Preliminary NO GROWTH AFTER 48 HOURS Resulted 12/03/16 18:22 Blood Blood Culture - Preliminary NO GROWTH AFTER 48 HOURS Resulted 12/03/16 19:03 Rectum VRE Culture - Final NO VANCOMYCIN RESISTANT ENTEROCOCCUS ... Complete Laboratory Tests 12/05/16 08:53: Hemoglobin A1c 7.8H 12/05/16 13:14: Legionella pneumophila Group 1 Ab [Pending], Legionella pneumophilia IgM Group 1 [Pending] Current Medications Medications (Trade) Dose Ordered Sig/Quita Route PRN Reason Start Time Stop Time Status Last Admin Dose Admin Albuterol/ Ipratropium 3 ml 3 ml Q4HRT HHN 12/03/16 23:00 12/08/16 22:59 12/06/16 07:01 Chlorhexidine Gluconate (Rose Mary-Hex 2%) 1 applic DAILY TOPIC 12/05/16 09:00 01/04/17 08:59 12/05/16 08:43 Clonazepam (KlonoPIN) 1 mg BID ORAL 12/04/16 09:00 12/11/16 08:59 12/05/16 17:09 Clonidine HCl (Catapres) 0.1 mg BID ORAL 12/04/16 09:00 01/03/17 08:59 12/05/16 17:10 Dextrose (Dextrose 50%) STAT PRN IV Hypoglycemia 12/06/16 08:30 01/05/17 08:29 Heparin Sodium (Porcine) (Heparin 5000 units/ml) 5,000 units EVERY 12 HOURS SUBQ 12/04/16 00:00 01/03/17 00:00 12/05/16 21:18 Hydromorphone HCl (Dilaudid) 2 mg Q4H PRN IVP Severe Pain (Pain Scale 7-10) 12/05/16 08:30 12/12/16 08:29 12/06/16 05:16 Insulin Aspart (NovoLOG) Q4HR SUBQ 12/06/16 09:00 01/05/17 08:59 Levofloxacin (Levaquin) 500 mg DAILY ORAL 12/04/16 09:00 12/11/16 08:59 12/05/16 08:36 Linezolid (Zyvox) 600 mg EVERY 12 HOURS ORAL 12/04/16 00:00 12/09/16 00:00 12/05/16 21:16 Metformin HCl (Glucophage) 500 mg BID ORAL 12/06/16 09:00 01/05/17 08:59 Metoprolol Tartrate 25 mg 25 mg BID ORAL 12/04/16 00:00 01/03/17 00:00 12/05/16 17:10 Morphine HCl (Morphine IR) 15 mg BID ORAL 12/04/16 09:00 12/11/16 08:59 12/05/16 17:11 Oxycodone/ Acetaminophen (Percocet 10/325) 1 tab Q4H PRN ORAL Moderate Pain (Pain Scale 4-6) 12/04/16 08:15 12/11/16 08:14 Pantoprazole (Protonix) 40 mg DAILY IVP 12/07/16 09:00 01/06/17 08:59 Piperacillin Sod/ Tazobactam Sod/ Dextrose (Zosyn/D5W) 110 ml @ 27.5 mls/hr EVERY 8 HOURS IVPB 12/04/16 06:00 12/11/16 05:59 12/06/16 05:16 Prednisone (predniSONE) 30 mg DAILY ORAL 12/06/16 09:00 01/05/17 08:59 Quetiapine Fumarate (SEROquel) 50 mg DAILY ORAL 12/06/16 09:00 01/05/17 08:59 Sitagliptin Phosphate (Januvia) 100 mg ACBREAKFAST ORAL 12/07/16 06:30 01/06/17 06:29 Sodium Chloride (Sodium Chloride 1000ml bag) 1,000 ml @ 75 mls/hr [id number] IV 12/03/16 21:00 01/02/17 20:59 12/06/16 04:00 Terazosin HCl (Hytrin) 2 mg QHS ORAL 12/03/16 21:00 01/02/17 20:59 12/05/16 21:14 Trazodone HCl (Desyrel) 100 mg BEDTIME ORAL 12/06/16 21:00 01/05/17 20:59 ZACK TORRES December 06, 2016 08:21
[2016-12-06 08:51] LABS: BASOPHILS % (AUTO) 0.2 % (0.0-2.0); LYMPHOCYTES % (AUTO) 11.1 % (20.0-45.0); MEAN CORPUSCULAR HEMOGLOBIN 22.5 PG (27.0-31.0); MEAN CORPUSCULAR HGB CONC 31.4 G/DL (32.0-36.0); MEAN CORPUSCULAR VOLUME 72 FL (80-99); MEAN PLATELET VOLUME 11.7 FL (6.5-10.1); MONOCYTES % (AUTO) 4.8 % (1.0-10.0); NEUTROPHILS % (AUTO) 83.9 % (45.0-75.0); PLATELET COUNT 163 K/UL (150-450); RED CELL DISTRIBUTION WIDTH 12.6 % (11.6-14.8); WHITE BLOOD COUNT 11.7 K/UL (4.8-10.8)
[2016-12-06 09:05] LABS: ALANINE AMINOTRANSFERASE 50 U/L (3-41); ALBUMIN/GLOBULIN RATIO 0.8 (1.0-2.7); ANION GAP 18 (5-15); ASPARTATE AMINO TRANSFERASE 41 U/L (5-40); CALCIUM 7.7 mg/dL (8.6-10.2); CARBON DIOXIDE 23 mEQ/L (20-30); CHLORIDE 91 mEQ/L (98-107); CREATININE 0.8 mg/dL (0.7-1.2); HEMOLYSIS 4; POTASSIUM 2.8 mEQ/L (3.4-4.9); SODIUM 132 mEQ/L (135-145); TOTAL PROTEIN 6.8 g/dL (6.6-8.7)
[2016-12-06] MEDS: Levofloxacin 500mg tab ORAL SCH (09:15)
[2016-12-06] MEDS: Dyna-Hex 2% Top Sol 8oz TOPIC SCH (09:15)
[2016-12-06] MEDS: metFORMIN 500mg tab ORAL SCH ×2 (09:16→17:17)
[2016-12-06] MEDS: Metoprolol 25mg tab ORAL SCH ×2 (09:16→17:17)
[2016-12-06] MEDS: Morphine IR 15mg tab ORAL SCH ×2 (09:17→17:19)
[2016-12-06] MEDS: PredniSONE 20mg tab ORAL SCH (09:18)
[2016-12-06] MEDS: Heparin 5000 units/ml inj SUBQ SCH ×2 (09:19→21:26)
[2016-12-06] MEDS ORDERED: Tubing IV Secondary IV ONE (10:47)
[2016-12-06] MEDS ORDERED: NS 275ml ONE (10:47)
--- NOTE | 2016-12-06 11:02 | Infectious Diseases Prog Note ---
Assessment/Plan Assessment/Plan antibiotics : linezolid, levoquin, zosyn A 1. pneumonia 2. COPD exacerbation 3. leucocytosis improving 4. DM P 1. continue levoquin po 6 more days 2. d/c linezolid, zosyn 3. will follow up cultures Subjective Constitutional: Denies: chills, fever Respiratory: Reports: dry cough, shortness of breath Gastrointestinal/Abdominal: Denies: diarrhea, nausea, vomiting Musculoskeletal: Reports: pain Allergies: Coded Allergies: VANCOMYCIN (Verified Adverse Reaction, Mild, RED MAN, 01/23/12) Objective Vital Signs Last 24 Hour Vital Signs Date Time Temp Pulse Resp B/P Pulse Ox O2 Delivery O2 Flow Rate FiO2 12/06/16 10:50 93 20 98 Nasal Cannula 2.0 12/06/16 10:44 92 20 94 Nasal Cannula 2.0 12/06/16 09:17 142/79 12/06/16 09:16 100 142/79 12/06/16 08:11 96.5 100 17 142/79 97 Room Air 12/06/16 07:07 94 20 98 Nasal Cannula 2.0 28 12/06/16 07:02 94 20 96 Nasal Cannula 2.0 28 12/06/16 07:02 Nasal Cannula 2.0 28 12/06/16 07:02 96 Nasal Cannula 2.0 12/06/16 05:46 97.0 12/06/16 04:00 92 12/06/16 04:00 97.0 96 18 136/80 98 Room Air 12/06/16 02:21 88 20 98 Nasal Cannula 2.0 12/06/16 02:20 84 20 94 Nasal Cannula 2.0 12/06/16 00:00 98 12/06/16 00:00 98.2 96 20 141/92 97 Nasal Cannula 2.0 28 12/05/16 23:30 80 20 93 Nasal Cannula 2.0 28 12/05/16 23:30 82 20 97 Nasal Cannula 2.0 12/05/16 20:00 85 12/05/16 20:00 98.2 73 20 122/73 96 Nasal Cannula 2.0 28 12/05/16 19:45 84 20 96 Nasal Cannula 2.0 28 12/05/16 19:30 94 Nasal Cannula 2.0 28 12/05/16 19:30 81 20 94 Nasal Cannula 2.0 28 12/05/16 19:30 Nasal Cannula 2.0 28 12/05/16 17:10 92 138/83 12/05/16 17:10 138/83 12/05/16 15:49 98.2 93 20 138/83 94 Room Air 12/05/16 15:47 86 12/05/16 15:02 91 18 95 Nasal Cannula 3.0 32 12/05/16 15:02 92 18 99 Nasal Cannula 3.0 32 12/05/16 11:58 96 12/05/16 11:47 98.0 95 20 127/79 97 Nasal Cannula 2.0 Height (Feet): 5 Height (Inches): 10.00 Weight (Pounds): 210 Respiratory/Chest: lungs clear Cardiovascular: normal rate, regular rhythm, no gallop/murmur Abdomen: soft, non tender Extremities: no edema Microbiology Date/Time Source Procedure Growth Status 12/03/16 19:10 Blood Blood Culture - Preliminary NO GROWTH AFTER 48 HOURS Resulted 12/03/16 18:22 Blood Blood Culture - Preliminary NO GROWTH AFTER 48 HOURS Resulted 12/03/16 19:03 Nasal Nares MRSA Culture - Final NO METHICILLIN RESISTANT STAPH AUREUS... Complete 12/03/16 19:03 Rectum VRE Culture - Final NO VANCOMYCIN RESISTANT ENTEROCOCCUS ... Complete Laboratory Tests Test 12/05/16 13:14 12/06/16 08:38 Legionella pneumophila Group 1 Ab Pending Legionella pneumophilia IgM Group 1 Pending White Blood Count 11.7 K/UL (4.8-10.8) H Red Blood Count 5.40 M/UL (4.70-6.10) Hemoglobin 12.2 G/DL (14.2-18.0) L Hematocrit 38.8 % (42.0-52.0) L Mean Corpuscular Volume 72 FL (80-99) L Mean Corpuscular Hemoglobin 22.5 PG (27.0-31.0) L Mean Corpuscular Hemoglobin Concent 31.4 G/DL (32.0-36.0) L Red Cell Distribution Width 12.6 % (11.6-14.8) Platelet Count 163 K/UL (150-450) Mean Platelet Volume 11.7 FL (6.5-10.1) H Neutrophils (%) (Auto) 83.9 % (45.0-75.0) H Lymphocytes (%) (Auto) 11.1 % (20.0-45.0) L Monocytes (%) (Auto) 4.8 % (1.0-10.0) Eosinophils (%) (Auto) 0.0 % (0.0-3.0) Basophils (%) (Auto) 0.2 % (0.0-2.0) Sodium Level 132 mEQ/L (135-145) L Potassium Level 2.8 mEQ/L (3.4-4.9) L Chloride Level 91 mEQ/L (98-107) L Carbon Dioxide Level 23 mEQ/L (20-30) Anion Gap 18 (5-15) H Blood Urea Nitrogen 15 mg/dL (7-23) Creatinine 0.8 mg/dL (0.7-1.2) Estimat Glomerular Filtration Rate mL/min (>60) Glucose Level 436 mg/dL (74-106) H Calcium Level 7.7 mg/dL (8.6-10.2) L Total Bilirubin 0.3 mg/dL (0.0-1.2) Aspartate Amino Transf (AST/SGOT) 41 U/L (5-40) H Alanine Aminotransferase (ALT/SGPT) 50 U/L (3-41) H Alkaline Phosphatase 63 U/L (40-129) Total Protein 6.8 g/dL (6.6-8.7) Albumin 3.2 g/dL (3.5-5.2) L Globulin 3.6 g/dL Albumin/Globulin Ratio 0.8 (1.0-2.7) L NINO MORGAN December 06, 2016 11:02
[2016-12-06 11:43] VITALS: BP 130/71
[2016-12-06 16:00] VITALS: BP 130/81
[2016-12-06 20:00] VITALS: BP 147/74
[2016-12-06] MEDS: TraZODone 100mg tab ORAL SCH (21:24)
[2016-12-06] MEDS: Terazosin 2mg cap ORAL SCH (21:24)
[2016-12-07] VITALS: BP 125/61
[2016-12-07] MEDS: NovoLOG Insulin Flexpen SUBQ SCH ×6 (01:27→21:55)
[2016-12-07] MEDS: DuoNeb 0.5-3(2.5)mg/3ml neb HHN SCH ×5 (03:00→19:50)
[2016-12-07 04:00] VITALS: BP 141/75
[2016-12-07 05:28] LABS: BASOPHILS % (AUTO) 0.7 % (0.0-2.0); EOSINOPHILS % (AUTO) 0.5 % (0.0-3.0); LYMPHOCYTES % (AUTO) 23.7 % (20.0-45.0); MEAN CORPUSCULAR HEMOGLOBIN 22.1 PG (27.0-31.0); MEAN CORPUSCULAR HGB CONC 30.8 G/DL (32.0-36.0); MEAN CORPUSCULAR VOLUME 72 FL (80-99); MEAN PLATELET VOLUME 11.4 FL (6.5-10.1); MONOCYTES % (AUTO) 7.2 % (1.0-10.0); NEUTROPHILS % (AUTO) 67.9 % (45.0-75.0); PLATELET COUNT 151 K/UL (150-450); RED BLOOD COUNT 5.67 M/UL (4.70-6.10); RED CELL DISTRIBUTION WIDTH 12.4 % (11.6-14.8); WHITE BLOOD COUNT 10.2 K/UL (4.8-10.8)
[2016-12-07 06:32] LABS: ALANINE AMINOTRANSFERASE 71 U/L (3-41); ALBUMIN/GLOBULIN RATIO 0.7 (1.0-2.7); ANION GAP 14 (5-15); ASPARTATE AMINO TRANSFERASE 64 U/L (5-40); CALCIUM 7.2 mg/dL (8.6-10.2); CARBON DIOXIDE 23 mEQ/L (20-30); CHLORIDE 102 mEQ/L (98-107); CREATININE 0.6 mg/dL (0.7-1.2); HEMOLYSIS 2; POTASSIUM 2.8 mEQ/L (3.4-4.9); SODIUM 139 mEQ/L (135-145)
[2016-12-07 08:00] VITALS: BP 113/70
--- NOTE | 2016-12-07 09:00 | Pulmonology Progress Note ---
Assessment/Plan Assessment/Plan IMPRESSION: 1. Basilar pneumonia. 2. Shortness of breath. 3. Respiratory insufficiency. 4. Chronic hypoxemia. 5. Chronic nicotine dependence. 6. Hyperkalemia. 7. Sinus tachycardia, now improved. 8. Leukocytosis concern for sepsis with elevated lactic acid. 9. Vancomycin allergy. PLAN care noted antibiotics reviewed and noted WBC noted follow up chest XR to follow up for changes encourage cough and clearance of secretions follow up and manage consider dc planning impression, plan, and exam edited and reviewed in detail care discussed with RN Subjective ROS Limited/Unobtainable: Yes Allergies: Coded Allergies: VANCOMYCIN (Verified Adverse Reaction, Mild, RED MAN, 01/23/12) Subjective somewhat confused minimal congestion Objective Last 24 Hour Vital Signs Date Time Temp Pulse Resp B/P Pulse Ox O2 Delivery O2 Flow Rate FiO2 12/07/16 08:00 97.6 94 19 113/70 Nasal Cannula 2.0 95 12/07/16 05:54 97.7 12/07/16 04:00 97.7 83 21 141/75 97 Nasal Cannula 2.0 12/07/16 04:00 82 12/07/16 03:16 Nasal Cannula 12/07/16 03:16 Nasal Cannula 12/07/16 00:00 97.8 85 20 125/61 94 Nasal Cannula 2.0 12/07/16 00:00 81 12/06/16 23:42 89 18 98 Nasal Cannula 2.0 12/06/16 23:32 87 18 97 Nasal Cannula 2.0 12/06/16 20:00 97.4 88 20 147/74 95 Nasal Cannula 2.0 12/06/16 20:00 101 12/06/16 19:59 88 18 98 Nasal Cannula 2.0 28 12/06/16 19:54 86 18 96 Nasal Cannula 2.0 28 12/06/16 19:54 Nasal Cannula 2.0 28 12/06/16 19:53 96 Nasal Cannula 2.0 12/06/16 17:17 92 130/81 12/06/16 17:17 130/81 12/06/16 16:00 92 12/06/16 16:00 97.5 92 17 130/81 98 Room Air 12/06/16 14:52 89 18 99 Nasal Cannula 2.0 28 12/06/16 14:47 89 20 96 Nasal Cannula 2.0 28 12/06/16 12:00 84 12/06/16 11:43 97.0 90 18 130/71 98 Room Air 12/06/16 10:50 93 20 98 Nasal Cannula 2.0 28 12/06/16 10:44 92 20 94 Nasal Cannula 2.0 28 12/06/16 09:17 142/79 12/06/16 09:16 100 142/79 Intake and Output 12/06/16 12/07/16 19:00 07:00 Intake Total 1385 ml 750 ml Output Total 640 ml 1000 ml Balance 745 ml -250 ml Intake Oral 560 ml IV Total 825 ml 750 ml Output Urine Total 640 ml 1000 ml # Voids 3 Objective A well-developed male with some congestion, but in no significant distress. HEENT: Overall negative. Extraocular movements are grossly intact. Pupils are equal and reactive. Oropharynx is moist. Neck: supple. Lungs: With reduced rhonchi. reduced breath sounds but no wheeze. Cardiovascular: Normal S1 and S2. Regular rate and rhythm without murmurs, rubs, or gallops. Abdomen: Soft, nontender, and nondistended. Extremities: No cyanosis or clubbing. No edema. Neurological: Grossly nonfocal. Alert and oriented x3. Cranial nerves otherwise are intact. Motor examination is otherwise negative. Laboratory Tests 12/07/16 04:15: White Blood Count 10.2, Red Blood Count 5.67, Hemoglobin 12.5L, Hematocrit 40.8L , Mean Corpuscular Volume 72L, Mean Corpuscular Hemoglobin 22.1L, Mean Corpuscular Hemoglobin Concent 30.8L, Red Cell Distribution Width 12.4, Platelet Count 151, Mean Platelet Volume 11.4H, Neutrophils (%) (Auto) 67.9, Lymphocytes (%) (Auto) 23.7, Monocytes (%) (Auto) 7.2, Eosinophils (%) (Auto) 0.5, Basophils (%) (Auto) 0.7, Sodium Level 139, Potassium Level 2.8L, Chloride Level 102, Carbon Dioxide Level 23, Anion Gap 14, Blood Urea Nitrogen 14, Creatinine 0.6L, Estimat Glomerular Filtration Rate , Glucose Level 144#H, Calcium Level 7.2L, Total Bilirubin 0.2, Aspartate Amino Transf (AST/SGOT) 64H, Alanine Aminotransferase (ALT/SGPT) 71H, Alkaline Phosphatase 57, Total Protein 6.0L, Albumin 2.6L, Globulin 3.4, Albumin/Globulin Ratio 0.7L 12/07/16 08:15: Sodium Level [Pending], Potassium Level [Pending], Chloride Level [Pending], Carbon Dioxide Level [Pending], Blood Urea Nitrogen [Pending], Creatinine [ Pending], Estimat Glomerular Filtration Rate [Pending], Glucose Level [Pending] , Calcium Level [Pending], Total Bilirubin [Pending], Aspartate Amino Transf ( AST/SGOT) [Pending], Alanine Aminotransferase (ALT/SGPT) [Pending], Alkaline Phosphatase [Pending], Total Protein [Pending], Albumin [Pending], Globulin [ Pending] Current Medications Medications (Trade) Dose Ordered Sig/Quita Route PRN Reason Start Time Stop Time Status Last Admin Dose Admin Albuterol/ Ipratropium 3 ml 3 ml Q4HRT HHN 12/03/16 23:00 12/08/16 22:59 12/07/16 07:46 Chlorhexidine Gluconate (Rose Mary-Hex 2%) 1 applic DAILY TOPIC 12/05/16 09:00 01/04/17 08:59 12/06/16 09:15 Clonazepam (KlonoPIN) 1 mg BID ORAL 12/04/16 09:00 12/11/16 08:59 12/06/16 17:16 Clonidine HCl (Catapres) 0.1 mg BID ORAL 12/04/16 09:00 01/03/17 08:59 12/06/16 17:17 Dextrose (Dextrose 50%) STAT PRN IV Hypoglycemia 12/06/16 08:30 01/05/17 08:29 Heparin Sodium (Porcine) (Heparin 5000 units/ml) 5,000 units EVERY 12 HOURS SUBQ 12/04/16 00:00 01/03/17 00:00 12/06/16 21:26 Hydromorphone HCl (Dilaudid) 2 mg Q4H PRN IVP Severe Pain (Pain Scale 7-10) 12/05/16 08:30 12/12/16 08:29 12/07/16 05:24 Insulin Aspart (NovoLOG) Q4HR SUBQ 12/06/16 09:00 01/05/17 08:59 12/07/16 01:27 Levofloxacin (Levaquin) 500 mg DAILY ORAL 12/04/16 09:00 12/12/16 13:00 12/06/16 09:15 Metformin HCl (Glucophage) 500 mg BID ORAL 12/06/16 09:00 01/05/17 08:59 12/06/16 17:17 Metoprolol Tartrate (Lopressor) 25 mg BID ORAL 12/04/16 00:00 01/03/17 00:00 12/06/16 17:17 Morphine HCl (Morphine IR) 15 mg BID ORAL 12/04/16 09:00 12/11/16 08:59 12/06/16 17:19 Oxycodone/ Acetaminophen (Percocet 10/325) 1 tab Q4H PRN ORAL Moderate Pain (Pain Scale 4-6) 12/04/16 08:15 12/11/16 08:14 Pantoprazole (Protonix) 40 mg DAILY IVP 12/07/16 09:00 01/06/17 08:59 Prednisone (predniSONE) 30 mg DAILY ORAL 12/06/16 09:00 01/05/17 08:59 12/06/16 09:18 Quetiapine Fumarate (SEROquel) 50 mg DAILY ORAL 12/06/16 09:00 01/05/17 08:59 12/06/16 09:16 Sitagliptin Phosphate (Januvia) 100 mg ACBREAKFAST ORAL 12/07/16 06:30 01/06/17 06:29 12/07/16 06:09 Sodium Chloride (Sodium Chloride 1000ml bag) 1,000 ml @ 75 mls/hr [id number] IV 12/03/16 21:00 01/02/17 20:59 12/07/16 05:25 Terazosin HCl (Hytrin) 2 mg QHS ORAL 12/03/16 21:00 01/02/17 20:59 12/06/16 21:24 Trazodone HCl (Desyrel) 100 mg BEDTIME ORAL 12/06/16 21:00 01/05/17 20:59 12/06/16 21:24 ZACK TORRES December 07, 2016 09:00
[2016-12-07 09:09] LABS: ALANINE AMINOTRANSFERASE 101 U/L (3-41); ALBUMIN/GLOBULIN RATIO 0.8 (1.0-2.7); ANION GAP 15 (5-15); ASPARTATE AMINO TRANSFERASE 101 U/L (5-40); CALCIUM 8.5 mg/dL (8.6-10.2); CARBON DIOXIDE 23 mEQ/L (20-30); CHLORIDE 98 mEQ/L (98-107); CREATININE 0.8 mg/dL (0.7-1.2); HEMOLYSIS 4; POTASSIUM 3.2 mEQ/L (3.4-4.9); SODIUM 136 mEQ/L (135-145); TOTAL PROTEIN 6.4 g/dL (6.6-8.7)
[2016-12-07] MEDS: metFORMIN 500mg tab ORAL SCH ×2 (09:36→18:03)
[2016-12-07] MEDS: Dyna-Hex 2% Top Sol 8oz TOPIC SCH (09:36)
[2016-12-07] MEDS: Levofloxacin 500mg tab ORAL SCH (09:40)
[2016-12-07] MEDS: PredniSONE 20mg tab ORAL SCH (09:45)
[2016-12-07] MEDS: Metoprolol 25mg tab ORAL SCH ×2 (09:45→18:04)
[2016-12-07] MEDS: Pantoprazole Inj IVP SCH (09:46)
[2016-12-07] MEDS: Heparin 5000 units/ml inj SUBQ SCH ×2 (09:48→21:56)
[2016-12-07] MEDS: Morphine IR 15mg tab ORAL SCH ×2 (09:48→18:04)
[2016-12-07 12:00] VITALS: BP 120/80
--- NOTE | 2016-12-07 14:18 | General Progress Note ---
Assessment/Plan Problem List: (1) Insomnia (2) CHF (congestive heart failure) (3) Pneumonia ICD Codes: J18.9 - Pneumonia, unspecified organism SNOMED: 467944825, [id number] Qualifiers: Qualified Codes: J18.1 - Lobar pneumonia, unspecified organism (4) COPD exacerbation ICD Codes: J44.1 - Chronic obstructive pulmonary disease with (acute) exacerbation SNOMED: 456360420, [id number] (5) Sepsis ICD Codes: A41.9 - Sepsis, unspecified organism SNOMED: 60040353 Qualifiers: Qualified Codes: A41.9 - Sepsis, unspecified organism Status: stable, progressing Assessment/Plan po abx follow up cultures resp rx po steroids diabetes rx resume anxiolytics monitor cxr pain rx replace k pt/ot eval dc planning tomorrow Subjective ROS Limited/Unobtainable: No Constitutional: Reports: malaise, weakness HEENT: Reports: no symptoms Cardiovascular: Reports: no symptoms Respiratory: Reports: cough, shortness of breath Gastrointestinal/Abdominal: Reports: no symptoms Genitourinary: Reports: no symptoms Neurologic/Psychiatric: Reports: no symptoms Endocrine: Reports: no symptoms Hematologic/Lymphatic: Reports: no symptoms Allergies: Coded Allergies: VANCOMYCIN (Verified Adverse Reaction, Mild, RED MAN, 01/23/12) All Systems: reviewed and negative except above Subjective blood sugar trending down. less sob. less chest pain still requiring iv pain rx on abx and steroids. Objective Last 24 Hour Vital Signs Date Time Temp Pulse Resp B/P Pulse Ox O2 Delivery O2 Flow Rate FiO2 12/07/16 12:00 97.0 88 19 120/80 Nasal Cannula 2.0 95 12/07/16 12:00 88 19 100 Nasal Cannula 2.0 95 12/07/16 11:47 95 12/07/16 11:47 90 21 100 Nasal Cannula 2.0 28 12/07/16 09:45 89 144/89 12/07/16 09:45 144/89 12/07/16 08:00 97.6 94 19 113/70 Nasal Cannula 2.0 95 12/07/16 08:00 95 20 100 Nasal Cannula 2.0 95 12/07/16 07:46 28 12/07/16 07:46 94 20 96 Nasal Cannula 2.0 12/07/16 07:46 97 Nasal Cannula 2.0 28 12/07/16 07:46 Nasal Cannula 2.0 28 12/07/16 05:54 97.7 12/07/16 04:00 97.7 83 21 141/75 97 Nasal Cannula 2.0 12/07/16 04:00 82 12/07/16 03:16 Nasal Cannula 12/07/16 03:16 Nasal Cannula 12/07/16 00:00 97.8 85 20 125/61 94 Nasal Cannula 2.0 12/07/16 00:00 81 12/06/16 23:42 89 18 98 Nasal Cannula 2.0 28 12/06/16 23:32 87 18 97 Nasal Cannula 2.0 28 12/06/16 20:00 97.4 88 20 147/74 95 Nasal Cannula 2.0 12/06/16 20:00 101 12/06/16 19:59 88 18 98 Nasal Cannula 2.0 12/06/16 19:54 86 18 96 Nasal Cannula 2.0 12/06/16 19:54 Nasal Cannula 2.0 12/06/16 19:53 96 Nasal Cannula 2.0 12/06/16 17:17 92 130/81 12/06/16 17:17 130/81 12/06/16 16:00 92 12/06/16 16:00 97.5 92 17 130/81 98 Room Air 12/06/16 14:52 89 18 99 Nasal Cannula 2.0 12/06/16 14:47 89 20 96 Nasal Cannula 2.0 28 Intake and Output 12/06/16 12/07/16 19:00 07:00 Intake Total 1385 ml 750 ml Output Total 640 ml 1000 ml Balance 745 ml -250 ml Intake Oral 560 ml IV Total 825 ml 750 ml Output Urine Total 640 ml 1000 ml # Voids 3 Laboratory Tests 12/07/16 04:15: White Blood Count 10.2, Red Blood Count 5.67, Hemoglobin 12.5L, Hematocrit 40.8L , Mean Corpuscular Volume 72L, Mean Corpuscular Hemoglobin 22.1L, Mean Corpuscular Hemoglobin Concent 30.8L, Red Cell Distribution Width 12.4, Platelet Count 151, Mean Platelet Volume 11.4H, Neutrophils (%) (Auto) 67.9, Lymphocytes (%) (Auto) 23.7, Monocytes (%) (Auto) 7.2, Eosinophils (%) (Auto) 0.5, Basophils (%) (Auto) 0.7, Sodium Level 139, Potassium Level 2.8L, Chloride Level 102, Carbon Dioxide Level 23, Anion Gap 14, Blood Urea Nitrogen 14, Creatinine 0.6L, Estimat Glomerular Filtration Rate , Glucose Level 144#H, Calcium Level 7.2L, Total Bilirubin 0.2, Aspartate Amino Transf (AST/SGOT) 64H, Alanine Aminotransferase (ALT/SGPT) 71H, Alkaline Phosphatase 57, Total Protein 6.0L, Albumin 2.6L, Globulin 3.4, Albumin/Globulin Ratio 0.7L 12/07/16 08:15: Sodium Level 136, Potassium Level 3.2L, Chloride Level 98, Carbon Dioxide Level 23, Anion Gap 15, Blood Urea Nitrogen 15, Creatinine 0.8, Estimat Glomerular Filtration Rate , Glucose Level 263#H, Calcium Level 8.5L, Total Bilirubin 0.3, Aspartate Amino Transf (AST/SGOT) 101H, Alanine Aminotransferase (ALT/SGPT) 101H , Alkaline Phosphatase 59, Total Protein 6.4L, Albumin 2.9L, Globulin 3.5, Albumin/Globulin Ratio 0.8L Height (Feet): 5 Height (Inches): 10.00 Weight (Pounds): 210 Objective General Appearance: WD/WN, alert Neck: supple Cardiovascular: normal rate, regular rhythm Respiratory/Chest: rhonchi - bilaterally, expiratory wheezing Abdomen: normal bowel sounds, non tender, soft, no organomegaly Edema: no edema noted Arm (L), no edema noted Arm (R), no edema noted Leg (L), no edema noted Leg (R), no edema noted Pedal (L), no edema noted Pedal (R), no edema noted Generalized Neurologic: no motor/sensory deficits, alert, oriented x 3 BRYON CHEN December 07, 2016 14:18
--- NOTE | 2016-12-07 14:28 | Infectious Diseases Prog Note ---
Assessment/Plan Assessment/Plan 1. pneumonia 2. COPD exacerbation 3. leucocytosis resolved 4. DM P 1. continue Levaquin PO 5 more days Subjective ROS Limited/Unobtainable: No Constitutional: Reports: no symptoms Respiratory: Reports: dry cough Cardiovascular: Reports: no symptoms Gastrointestinal/Abdominal: Reports: no symptoms Genitourinary: Reports: no symptoms Allergies: Coded Allergies: VANCOMYCIN (Verified Adverse Reaction, Mild, RED MAN, 01/23/12) Objective Vital Signs Last 24 Hour Vital Signs Date Time Temp Pulse Resp B/P Pulse Ox O2 Delivery O2 Flow Rate FiO2 12/07/16 12:00 97.0 88 19 120/80 Nasal Cannula 2.0 95 12/07/16 12:00 88 19 100 Nasal Cannula 2.0 95 12/07/16 11:47 95 12/07/16 11:47 90 21 100 Nasal Cannula 2.0 28 12/07/16 09:45 89 144/89 12/07/16 09:45 144/89 12/07/16 08:00 97.6 94 19 113/70 Nasal Cannula 2.0 95 12/07/16 08:00 95 20 100 Nasal Cannula 2.0 95 12/07/16 07:46 28 12/07/16 07:46 94 20 96 Nasal Cannula 2.0 28 12/07/16 07:46 97 Nasal Cannula 2.0 28 12/07/16 07:46 Nasal Cannula 2.0 28 12/07/16 05:54 97.7 12/07/16 04:00 97.7 83 21 141/75 97 Nasal Cannula 2.0 12/07/16 04:00 82 12/07/16 03:16 Nasal Cannula 12/07/16 03:16 Nasal Cannula 12/07/16 00:00 97.8 85 20 125/61 94 Nasal Cannula 2.0 12/07/16 00:00 81 12/06/16 23:42 89 18 98 Nasal Cannula 2.0 28 12/06/16 23:32 87 18 97 Nasal Cannula 2.0 12/06/16 20:00 97.4 88 20 147/74 95 Nasal Cannula 2.0 12/06/16 20:00 101 12/06/16 19:59 88 18 98 Nasal Cannula 2.0 12/06/16 19:54 86 18 96 Nasal Cannula 2.0 12/06/16 19:54 Nasal Cannula 2.0 28 12/06/16 19:53 96 Nasal Cannula 2.0 28 12/06/16 17:17 92 130/81 12/06/16 17:17 130/81 12/06/16 16:00 92 12/06/16 16:00 97.5 92 17 130/81 98 Room Air 12/06/16 14:52 89 18 99 Nasal Cannula 2.0 28 12/06/16 14:47 89 20 96 Nasal Cannula 2.0 28 Height (Feet): 5 Height (Inches): 10.00 Weight (Pounds): 210 General Appearance: no acute distress HEENT: mucous membranes moist Respiratory/Chest: lungs clear Cardiovascular: normal rate Abdomen: soft, non tender Extremities: no edema Neurologic/Psychiatric: alert, oriented x 3, responsive Laboratory Tests Test 12/07/16 04:15 12/07/16 08:15 White Blood Count 10.2 K/UL (4.8-10.8) Red Blood Count 5.67 M/UL (4.70-6.10) Hemoglobin 12.5 G/DL (14.2-18.0) L Hematocrit 40.8 % (42.0-52.0) L Mean Corpuscular Volume 72 FL (80-99) L Mean Corpuscular Hemoglobin 22.1 PG (27.0-31.0) L Mean Corpuscular Hemoglobin Concent 30.8 G/DL (32.0-36.0) L Red Cell Distribution Width 12.4 % (11.6-14.8) Platelet Count 151 K/UL (150-450) Mean Platelet Volume 11.4 FL (6.5-10.1) H Neutrophils (%) (Auto) 67.9 % (45.0-75.0) Lymphocytes (%) (Auto) 23.7 % (20.0-45.0) Monocytes (%) (Auto) 7.2 % (1.0-10.0) Eosinophils (%) (Auto) 0.5 % (0.0-3.0) Basophils (%) (Auto) 0.7 % (0.0-2.0) Sodium Level 139 mEQ/L (135-145) 136 mEQ/L (135-145) Potassium Level 2.8 mEQ/L (3.4-4.9) L 3.2 mEQ/L (3.4-4.9) L Chloride Level 102 mEQ/L (98-107) 98 mEQ/L (98-107) Carbon Dioxide Level 23 mEQ/L (20-30) 23 mEQ/L (20-30) Anion Gap 14 (5-15) 15 (5-15) Blood Urea Nitrogen 14 mg/dL (7-23) 15 mg/dL (7-23) Creatinine 0.6 mg/dL (0.7-1.2) L 0.8 mg/dL (0.7-1.2) Estimat Glomerular Filtration Rate mL/min (>60) mL/min (>60) Glucose Level 144 mg/dL (74-106) #H 263 mg/dL (74-106) #H Calcium Level 7.2 mg/dL (8.6-10.2) L 8.5 mg/dL (8.6-10.2) L Total Bilirubin 0.2 mg/dL (0.0-1.2) 0.3 mg/dL (0.0-1.2) Aspartate Amino Transf (AST/SGOT) 64 U/L (5-40) H 101 U/L (5-40) H Alanine Aminotransferase (ALT/SGPT) 71 U/L (3-41) H 101 U/L (3-41) H Alkaline Phosphatase 57 U/L (40-129) 59 U/L (40-129) Total Protein 6.0 g/dL (6.6-8.7) L 6.4 g/dL (6.6-8.7) L Albumin 2.6 g/dL (3.5-5.2) L 2.9 g/dL (3.5-5.2) L Globulin 3.4 g/dL 3.5 g/dL Albumin/Globulin Ratio 0.7 (1.0-2.7) L 0.8 (1.0-2.7) L Current Medications Medications (Trade) Dose Ordered Sig/Quita Route PRN Reason Start Time Stop Time Status Last Admin Dose Admin Albuterol/ Ipratropium 3 ml 3 ml Q4HRT HHN 12/03/16 23:00 12/08/16 22:59 12/07/16 11:47 Chlorhexidine Gluconate (Rose Mary-Hex 2%) 1 applic DAILY TOPIC 12/05/16 09:00 01/04/17 08:59 12/07/16 09:36 Clonazepam (KlonoPIN) 1 mg BID ORAL 12/04/16 09:00 12/11/16 08:59 12/07/16 09:36 Clonidine HCl (Catapres) 0.1 mg BID ORAL 12/04/16 09:00 01/03/17 08:59 12/07/16 09:45 Dextrose (Dextrose 50%) STAT PRN IV Hypoglycemia 12/06/16 08:30 01/05/17 08:29 Heparin Sodium (Porcine) (Heparin 5000 units/ml) 5,000 units EVERY 12 HOURS SUBQ 12/04/16 00:00 01/03/17 00:00 12/07/16 09:48 Hydromorphone HCl (Dilaudid) 2 mg Q4H PRN IVP Severe Pain (Pain Scale 7-10) 12/05/16 08:30 12/12/16 08:29 12/07/16 14:16 Insulin Aspart (NovoLOG) Q4HR SUBQ 12/06/16 09:00 01/05/17 08:59 12/07/16 09:49 Levofloxacin (Levaquin) 500 mg DAILY ORAL 12/04/16 09:00 12/12/16 13:00 12/07/16 09:40 Metformin HCl (Glucophage) 500 mg BID ORAL 12/06/16 09:00 01/05/17 08:59 12/07/16 09:36 Metoprolol Tartrate (Lopressor) 25 mg BID ORAL 12/04/16 00:00 01/03/17 00:00 12/07/16 09:45 Morphine HCl (Morphine IR) 15 mg BID ORAL 12/04/16 09:00 12/11/16 08:59 12/07/16 09:48 Oxycodone/ Acetaminophen (Percocet 10/325) 1 tab Q4H PRN ORAL Moderate Pain (Pain Scale 4-6) 12/04/16 08:15 12/11/16 08:14 Pantoprazole (Protonix) 40 mg DAILY IVP 12/07/16 09:00 01/06/17 08:59 12/07/16 09:46 Prednisone (predniSONE) 30 mg DAILY ORAL 12/06/16 09:00 01/05/17 08:59 12/07/16 09:45 Quetiapine Fumarate (SEROquel) 50 mg DAILY ORAL 12/06/16 09:00 01/05/17 08:59 12/07/16 09:46 Sitagliptin Phosphate (Januvia) 100 mg ACBREAKFAST ORAL 12/07/16 06:30 01/06/17 06:29 12/07/16 06:09 Sodium Chloride (Sodium Chloride 1000ml bag) 1,000 ml @ 75 mls/hr [id number] IV 12/03/16 21:00 01/02/17 20:59 12/07/16 05:25 Terazosin HCl (Hytrin) 2 mg QHS ORAL 12/03/16 21:00 01/02/17 20:59 12/06/16 21:24 Trazodone HCl (Desyrel) 100 mg BEDTIME ORAL 12/06/16 21:00 01/05/17 20:59 12/06/16 21:24 DARBY PATEL December 07, 2016 14:28
[2016-12-07 16:00] VITALS: BP 122/75
[2016-12-07 20:00] VITALS: BP 131/85
[2016-12-07 21:14] LABS: L.PNEUMOPHILIA SERO-1 <0.91 OD ratio (0.00-0.90)
[2016-12-07] MEDS: Terazosin 2mg cap ORAL SCH (21:54)
[2016-12-07] MEDS: TraZODone 100mg tab ORAL SCH (21:54)
[2016-12-08 00:05] VITALS: BP 135/89
[2016-12-08] MEDS: DuoNeb 0.5-3(2.5)mg/3ml neb HHN SCH ×3 (00:11→07:36)
[2016-12-08] MEDS: NovoLOG Insulin Flexpen SUBQ SCH ×3 (01:00→09:08)
[2016-12-08 04:05] VITALS: BP 126/78
[2016-12-08 07:58] VITALS: BP 143/72
--- NOTE | 2016-12-08 08:14 | Pulmonology Progress Note ---
Assessment/Plan Assessment/Plan IMPRESSION: 1. Basilar pneumonia. 2. Shortness of breath. 3. Respiratory insufficiency. 4. Chronic hypoxemia. 5. Chronic nicotine dependence. 6. Hyperkalemia. 7. Sinus tachycardia, now improved. 8. Leukocytosis concern for sepsis with elevated lactic acid. 9. Vancomycin allergy. PLAN care noted antibiotics on Levaquin only labs noted follow up chest XR for final clearing taper prednisone encourage cough and clearance of secretions follow up and manage ok to dc per pulmonary oxygen as needed impression, plan, and exam edited and reviewed in detail care discussed with RN Subjective Allergies: Coded Allergies: VANCOMYCIN (Verified Adverse Reaction, Mild, RED MAN, 01/23/12) Subjective baseline LOC minimal congestion as prior able to cough Objective Last 24 Hour Vital Signs Date Time Temp Pulse Resp B/P Pulse Ox O2 Delivery O2 Flow Rate FiO2 12/08/16 07:58 97.0 91 20 143/72 100 Nasal Cannula 2.0 12/08/16 07:35 82 18 98 Nasal Cannula 2.0 28 12/08/16 07:30 Nasal Cannula 2.0 28 12/08/16 07:30 95 Nasal Cannula 2.0 28 12/08/16 07:30 78 18 95 Nasal Cannula 2.0 28 12/08/16 04:05 97.5 87 20 126/78 94 Room Air 12/08/16 04:00 89 12/08/16 03:45 90 16 95 Nasal Cannula 2.0 12/08/16 03:35 88 18 92 Nasal Cannula 2.0 12/08/16 03:34 98.1 12/08/16 00:05 98.1 92 20 135/89 95 Room Air 12/08/16 00:00 92 12/07/16 23:49 95 18 96 Nasal Cannula 2.0 28 12/07/16 23:40 98 18 93 Nasal Cannula 2.0 28 12/07/16 20:00 97.7 79 20 131/85 95 Room Air 12/07/16 20:00 89 12/07/16 19:59 86 18 96 Nasal Cannula 2.0 28 12/07/16 19:54 84 18 94 Nasal Cannula 2.0 28 12/07/16 19:53 Nasal Cannula 2.0 28 12/07/16 19:53 94 Nasal Cannula 2.0 12/07/16 18:04 97 122/75 12/07/16 18:04 122/75 12/07/16 16:00 96 12/07/16 16:00 97.0 97 18 122/75 Nasal Cannula 2.0 94 12/07/16 15:09 90 20 100 Nasal Cannula 2.0 95 12/07/16 14:53 88 19 100 Nasal Cannula 2.0 95 12/07/16 14:53 95 12/07/16 12:00 97.0 88 19 120/80 Nasal Cannula 2.0 95 12/07/16 12:00 88 19 100 Nasal Cannula 2.0 95 12/07/16 12:00 82 12/07/16 11:47 95 12/07/16 11:47 90 21 100 Nasal Cannula 2.0 28 12/07/16 09:45 89 144/89 12/07/16 09:45 144/89 Intake and Output 12/07/16 12/08/16 19:00 07:00 Intake Total 750 ml Output Total 1000 ml 1750 ml Balance -250 ml -1750 ml IV Total 750 ml Output Urine Total 1000 ml 1750 ml # Voids 4 Objective A well-developed male with reduced congestion, NAD HEENT: Overall negative. Extraocular movements are grossly intact. Pupils are equal and reactive. Oropharynx is moist. Neck: supple. Lungs: With minimal rhonchi. reduced breath sounds but no wheeze. Cardiovascular: Normal S1 and S2. Regular rate and rhythm without murmurs, rubs, or gallops. Abdomen: Soft, nontender, and nondistended. Extremities: No cyanosis or clubbing. No edema. Neurological: Grossly nonfocal. Alert and oriented x3. Cranial nerves otherwise are intact. Motor examination is otherwise negative. Laboratory Tests 12/07/16 08:15: Sodium Level 136, Potassium Level 3.2L, Chloride Level 98, Carbon Dioxide Level 23, Anion Gap 15, Blood Urea Nitrogen 15, Creatinine 0.8, Estimat Glomerular Filtration Rate , Glucose Level 263#H, Calcium Level 8.5L, Total Bilirubin 0.3, Aspartate Amino Transf (AST/SGOT) 101H, Alanine Aminotransferase (ALT/SGPT) 101H , Alkaline Phosphatase 59, Total Protein 6.4L, Albumin 2.9L, Globulin 3.5, Albumin/Globulin Ratio 0.8L Current Medications Medications (Trade) Dose Ordered Sig/Quita Route PRN Reason Start Time Stop Time Status Last Admin Dose Admin Albuterol/ Ipratropium 3 ml 3 ml Q4HRT HHN 12/03/16 23:00 12/08/16 22:59 12/08/16 07:36 Chlorhexidine Gluconate (Rose Mary-Hex 2%) 1 applic DAILY TOPIC 12/05/16 09:00 01/04/17 08:59 12/07/16 09:36 Clonazepam (KlonoPIN) 1 mg BID ORAL 12/04/16 09:00 12/11/16 08:59 12/07/16 18:04 Clonidine HCl (Catapres) 0.1 mg BID ORAL 12/04/16 09:00 01/03/17 08:59 12/07/16 18:04 Dextrose (Dextrose 50%) STAT PRN IV Hypoglycemia 12/06/16 08:30 01/05/17 08:29 Heparin Sodium (Porcine) (Heparin 5000 units/ml) 5,000 units EVERY 12 HOURS SUBQ 12/04/16 00:00 01/03/17 00:00 12/07/16 21:56 Hydromorphone HCl (Dilaudid) 2 mg Q4H PRN IVP Severe Pain (Pain Scale 7-10) 12/05/16 08:30 12/12/16 08:29 12/08/16 07:12 Insulin Aspart (NovoLOG) Q4HR SUBQ 12/06/16 09:00 01/05/17 08:59 12/08/16 05:52 Levofloxacin (Levaquin) 500 mg DAILY ORAL 12/04/16 09:00 12/12/16 13:00 12/07/16 09:40 Metformin HCl (Glucophage) 500 mg BID ORAL 12/06/16 09:00 01/05/17 08:59 12/07/16 18:03 Metoprolol Tartrate (Lopressor) 25 mg BID ORAL 12/04/16 00:00 01/03/17 00:00 12/07/16 18:04 Morphine HCl (Morphine IR) 15 mg BID ORAL 12/04/16 09:00 12/11/16 08:59 12/07/16 18:04 Oxycodone/ Acetaminophen (Percocet 10/325) 1 tab Q4H PRN ORAL Moderate Pain (Pain Scale 4-6) 12/04/16 08:15 12/11/16 08:14 Pantoprazole (Protonix) 40 mg DAILY IVP 12/07/16 09:00 01/06/17 08:59 12/07/16 09:46 Prednisone (predniSONE) 30 mg DAILY ORAL 12/06/16 09:00 01/05/17 08:59 12/07/16 09:45 Quetiapine Fumarate (SEROquel) 50 mg DAILY ORAL 12/06/16 09:00 01/05/17 08:59 12/07/16 09:46 Sitagliptin Phosphate (Januvia) 100 mg ACBREAKFAST ORAL 12/07/16 06:30 01/06/17 06:29 12/08/16 05:52 Sodium Chloride (Sodium Chloride 1000ml bag) 1,000 ml @ 75 mls/hr [id number] IV 12/03/16 21:00 01/02/17 20:59 12/07/16 18:05 Terazosin HCl (Hytrin) 2 mg QHS ORAL 12/03/16 21:00 01/02/17 20:59 12/07/16 21:54 Trazodone HCl (Desyrel) 100 mg BEDTIME ORAL 12/06/16 21:00 01/05/17 20:59 12/07/16 21:54 ZACK TORRES December 08, 2016 08:14
[2016-12-08] MEDS ORDERED: LEVAQUIN500 MG ORAL (08:38)
[2016-12-08] MEDS ORDERED: PredniSONE 20mg tab ORAL SCH (09:00)
[2016-12-08] MEDS: Dyna-Hex 2% Top Sol 8oz TOPIC SCH (09:04)
[2016-12-08] MEDS: Pantoprazole Inj IVP SCH (09:04)
[2016-12-08 09:05] VITALS: BP 143/72
[2016-12-08] MEDS: Metoprolol 25mg tab ORAL SCH (09:05)
[2016-12-08] MEDS: Levofloxacin 500mg tab ORAL SCH (09:05)
[2016-12-08] MEDS: metFORMIN 500mg tab ORAL SCH (09:05)
[2016-12-08] MEDS: Morphine IR 15mg tab ORAL SCH (09:06)
[2016-12-08] MEDS: Heparin 5000 units/ml inj SUBQ SCH (09:09)
[2016-12-08 11:11] LABS: L.PNEUMOPHILIA IGM SERO-1 < 1:16 (< 1:16)
--- NOTE | 2016-12-09 03:16 | Discharge Summary ---
DATE OF ADMISSION: 12/03/2016 DATE OF DISCHARGE: 12/08/2016 ADMISSION DIAGNOSES: 1. Respiratory failure. 2. Chronic obstructive pulmonary disease exacerbation. 3. Pneumonia. 4. Possible congestive heart failure exacerbation. 5. Hypertension. 6. History of gangrene. 7. History of intractable pain. 8. History of fibromyalgia. 9. Diabetes, out of control. DISCHARGE DIAGNOSES: 1. Respiratory failure. 2. Chronic obstructive pulmonary disease exacerbation. 3. Pneumonia. 4. Possible congestive heart failure exacerbation. 5. Hypertension. 6. History of gangrene. 7. History of intractable pain. 8. History of fibromyalgia. 9. Diabetes, out of control. HOSPITAL COURSE: The patient is a pleasant male with complaints of shortness of breath. He was diagnosed with pneumonia and chronic obstructive pulmonary disease exacerbation. His hospital course was complicated by diabetes, out of control. He received intravenous antibiotics and intravenous steroids. They were tapered. His chest x-ray showed evidence of pneumonia, but the pneumonia improved with antibiotic therapy. On discharge, the patient was doing well. He will be discharged home on antibiotics for an additional week. DISCHARGE MEDICATIONS: Please see discharge medication list for discharge medications. DIET: Cardiac diabetic diet. ACTIVITY: Ad-enrique. FOLLOWUP: The patient will follow up in the office in two weeks. Patrick Mancilla M.D. DR: MARCIA JOB#: [id number] CC:
== END 2016-12-08 10:15 | disposition home health service (06) | DRG 871 ==
LOC: ENRESERVDT → ENRESERVTM → EDBD 18:07 → EMR 18:35 → EDBEDREQ 21:30 → 2E 22:15
PROC: 02HV33Z Insertion of Infusion Device into Superior Vena Cava, Percutaneous Approach (ICD-10-PCS; principal; 2016-12-04)
PROC: B548ZZA Ultrasonography of Superior Vena Cava, Guidance (ICD-10-PCS; principal; 2016-12-04)
DX: A41.9 Sepsis, unspecified organism (principal); J18.9 Pneumonia, unspecified organism; J96.91 Respiratory failure, unspecified with hypoxia; E87.2 Acidosis; Z99.81 Dependence on supplemental oxygen; E87.5 Hyperkalemia; E11.65 Type 2 diabetes mellitus with hyperglycemia; I50.9 Heart failure, unspecified; J44.1 Chronic obstructive pulmonary disease with (acute) exacerbation; E87.1 Hypo-osmolality and hyponatremia; I10 Essential (primary) hypertension; F17.210 Nicotine dependence, cigarettes, uncomplicated; M79.7 Fibromyalgia; R00.0 Tachycardia, unspecified; G47.00 Insomnia, unspecified
CPT/HCPCS: 36415; 36569; 71010; 76937; 80053; 81003; 82550; 82553; 82962; 83036; 83605; 83880; 84484; 85007; 85025; 86713; 87040; 87081; 93005; 94640; 94664; 94760; J1815; J7620; J8499